=== PATIENT | female | born 1945 | race Caucasian/White ===

== ENCOUNTER 2020-10-18 09:20 | Outpatient (NON) | payer MEDICARE, SELFPAY ==
[2020-10-18 09:52] LABS: MALB Creatinine Ratio 23.5 mg/g (0-30); Microalbumin Urine Random < 13.0 mg/L
[2020-10-18 10:04] LABS: Alanine Aminotransferase 14 U/L (14-59); Alkaline Phosphatase 68 U/L (46-116); Anion Gap 9 mmol/L (8-16); Aspartate Amino Transferase 10 U/L (15-37); Bilirubin,Total 0.3 mg/dL (0.00-1.00); Blood Urea Nitrogen 10 mg/dL (7-18); Calcium 9.3 mg/dL (8.5-10.1); Carbon Dioxide 28 mmol/L (21-32); Chloride 101 mmol/L (98-108); Cholesterol 176 mg/dL (0-200); Estimated Glomerular Filt Rate > 60; Free T4 Free Thyroxine 1.59 ng/dL (0.76-1.46); Glucose 227 mg/dL (70-99); HDL Direct 74 mg/dL (40-60); LDL Cholesterol Calculated 89 mg/dL (<130); Osmolality Calculated 292 mOsm/kg (285-295); Potassium 4.8 mmol/L (3.5-5.1); Sodium 138 mmol/L (136-145); Thyroid Stimulating Hormone 0.98 uIU/mL (0.36-3.74); Total Protein 6.6 g/dL (6.4-8.2); Triglycerides 64 mg/dL (0-150)
== END 2020-10-18 09:21 ==
PROVIDERS: Visit Provider Internal Medicine Endocrinology, Diabetes & Metabolism
DX: E11.59 Type 2 diabetes mellitus with other circulatory complications (principal); I10 Essential (primary) hypertension; E11.65 Type 2 diabetes mellitus with hyperglycemia; Z79.4 Long term (current) use of insulin; E03.9 Hypothyroidism, unspecified; E78.5 Hyperlipidemia, unspecified
CPT/HCPCS: 36415; 80053; 80061; 82043; 84439; 84443

== ENCOUNTER 2020-12-22 11:05 | Outpatient (CLI) | payer MEDICARE, MEDICAID, SELFPAY ==
--- NOTE | ~2020-12-22 | XR_ITS ---
EXAMINATION: XR knee LT 3V DATE: 12/22/2020 11:30 INDICATION: Left knee pain. TECHNIQUE: 3 views of left knee were obtained. COMPARISON: Left knee radiographs 12/20/2020 FINDINGS: Bone alignment is normal. No acute fracture. There is an old fracture of patella with inter nal fixation with [id number] tension band and multiple screws. Again seen is a 1 mm step-off at the articular surface. There is mild osteoarthritis of patellofemoral compartment. No knee joint effu ryann. IMPRESSION: 1. 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 Reviewed, dictated and finalized at location B.
== END 2020-12-22 11:06 | disposition home or self-care (01) ==
PROVIDERS: PCP Family Medicine; Visit Provider Family Medicine
DX: M25.562 Pain in left knee (principal)
CPT/HCPCS: 73562

== ENCOUNTER 2021-11-08 09:21 | Outpatient (NON) | payer OTHER, SELFPAY ==
[2021-11-08 09:45] LABS: Basophils Absolute Auto 0.05 K/mm3 (0.00-0.10); Basophils Percent Auto 0.8 % (0.0-1.0); Eosinophils Percent Auto 1.5 % (1.0-6.0); Hemoglobin 14.8 g/dL (11.7-13.8); Immature Granulocyte Absolute 0.02 K/mm3 (0.00-0.00); Immature Granulocyte Percent A 0.3 % (0.0-0.0); Lymphocytes Absolute Auto 1.94 K/mm3 (1.10-4.50); Lymphocytes Percent Auto 29.3 % (18.0-42.0); Mean Corpuscular HGB Conc 32.9 g/dL (32.0-36.0); Mean Corpuscular Hemoglobin 31.1 pg (27.0-31.0); Mean Corpuscular Volume 94.5 fL (78.0-102.0); Mean Platelet Volume 10.7 fl (9.2-11.8); Monocytes Absolute Auto 0.62 K/mm3 (0.10-0.90); Monocytes Percent Auto 9.4 % (2.0-11.0); Neutrophils Absolute Auto 3.9 K/mm3 (1.7-7.2); Neutrophils Percent Auto 58.7 % (50.0-70.0); Platelet Count Result 325 K/mm3 (150-420); Red Blood Count 4.76 M/mm3 (4.20-5.40); Red Cell Distribution Width 12.4 % (11.6-14.4); White Blood Count 6.6 K/mm3 (4.8-10.8)
[2021-11-08 10:02] LABS: Hemoglobin A1C 7.4 % (<5.7)
[2021-11-08 10:19] LABS: Alanine Aminotransferase 19 U/L (14-59); Albumin Level 4.1 g/dL (3.4-5.0); Alkaline Phosphatase 77 U/L (46-116); Anion Gap 10 mmol/L (8-16); Aspartate Amino Transferase 15 U/L (15-37); Bilirubin,Total 0.3 mg/dL (0.00-1.00); Blood Urea Nitrogen 9 mg/dL (7-18); Calcium 9.7 mg/dL (8.5-10.1); Carbon Dioxide 30 mmol/L (21-32); Chloride 101 mmol/L (98-108); Cholesterol 178 mg/dL (0-200); Estimated Glomerular Filt Rate > 60; Glucose 74 mg/dL (70-99); HDL Direct 81 mg/dL (40-60); LDL Cholesterol Calculated 84 mg/dL (<130); Osmolality Calculated 289 mOsm/kg (285-295); Potassium 4.6 mmol/L (3.5-5.1); Sodium 141 mmol/L (136-145); Triglycerides 65 mg/dL (0-150)
== END 2021-11-08 09:22 | disposition home or self-care (01) ==
LOC: CHSLAB 09:28
PROVIDERS: Visit Provider Nurse Practitioner Family
DX: E78.5 Hyperlipidemia, unspecified (principal); E11.9 Type 2 diabetes mellitus without complications; I10 Essential (primary) hypertension; E03.9 Hypothyroidism, unspecified
CPT/HCPCS: 36415; 80053; 80061; 83036; 84443; 85025

== ENCOUNTER 2022-02-20 13:57 | Outpatient (RCR) | payer OTHER, SELFPAY ==
--- NOTE | 2022-02-20 15:16 | PTOPEVAL ---
Thank you for referring Pita Palmer to [facility].? The patient is scheduled to be seen for therapy? __2__x/week for 10 visits. Please review, sign, date and return this plan of care AGUILA. I agree with and certify that the following plan of care is medically necessary. Referring Physician Date Admitting Provider: Attending Provider: Ama Mendoza NP Referring Provider: *PT Outpatient Evaluation Start: 02/20/22 14:17 Freq: Status: Active Protocol: Document 02/20/22 14:39 KYLE (Rec: 02/20/22 15:01 KYLE [email or web address]) Therapy Assessment Status Assessment Status Assessment Status Evaluation Outpatient Past Medical History Neurological History Hx Neurological Disorders No Significant History Cardiovascular History Hx Hypercholesterolemia Yes Hx Hypertension Yes Respiratory History Hx Respiratory Disorders No Significant History Gastrointestinal History Hx Appendectomy Yes Hx Gastroesophageal Reflux Disease Yes Genitourinary History Hx Other Genitourinary Disorders Yes: URINARY INCONTINENCE- WEARS PAD Musculoskeletal History Hx Arthritis Yes: GENERALIZED Hx Orthopedic Surgery Yes: 2016 ORIF RT LEG,2014 LT HIP Hx Osteoporosis Yes Hx Other Musculoskeletal Disorders Yes: LT KNEE PATELLA FX Hematological History Hx Anemia Yes: TAKES PO IRON Endocrine History Hx Diabetes Yes Hx Hypothyroidism Yes HEENT History Hx Sinus Problems Yes Integumentary History Hx Skin Disorders No Significant History Psychosocial History Hx Psychiatric Disorders No Significant History Pain History Has Past Pain Affected Your Daily Life Yes: LT KNEE Anesthesia History Hx Post-Op Nausea/Vomiting Yes Evaluation Information Problem Diagnosis left knee pain Onset 02/07/22 Subjective Information Pt. reports she has had on/off Query Text:As Reported By Patient/ knee pain for several years. Family She reports that she has noticed a recent increase in pain with standing. She reports she is currently using a walker and states that she cannot stand for more than 5 minutes due to knee pain. She also describes pain in the area of the left thigh. She states that pain is most notable with standing and walking. She reports that she
== END 2022-04-04 17:06 | disposition home or self-care (01) ==
LOC: CHSPT 13:57
PROVIDERS: PCP Nurse Practitioner Family; Visit Provider Nurse Practitioner Family
DX: M25.562 Pain in left knee (principal)
CPT/HCPCS: 97014; 97110; 97161; 97530; G0283

== ENCOUNTER 2022-10-30 16:19 | Outpatient (CLI) | payer OTHER, SELFPAY ==
[2022-10-30 16:34] LABS: Hematocrit 42.4 % (35.0-42.0); Hemoglobin 13.7 g/dL (11.7-13.8); Mean Corpuscular HGB Conc 32.3 g/dL (32.0-36.0); Mean Corpuscular Hemoglobin 30.2 pg (27.0-31.0); Mean Corpuscular Volume 93.6 fL (78.0-102.0); Mean Platelet Volume 10.1 fl (9.2-11.8); Platelet Count Result 319 K/mm3 (150-420); Red Blood Count 4.53 M/mm3 (4.20-5.40); Red Cell Distribution Width 12.3 % (11.6-14.4); White Blood Count 7.4 K/mm3 (4.8-10.8)
[2022-10-30 16:50] LABS: Hemoglobin A1C 8.7 % (<5.7)
[2022-10-30 17:05] LABS: Alanine Aminotransferase 17 U/L (14-59); Alkaline Phosphatase 83 U/L (46-116); Anion Gap 4 mmol/L (8-16); Aspartate Amino Transferase 16 U/L (15-37); Bilirubin,Total 0.2 mg/dL (0.00-1.00); Blood Urea Nitrogen 12 mg/dL (7-18); Calcium 9.8 mg/dL (8.5-10.1); Carbon Dioxide 34 mmol/L (21-32); Chloride 104 mmol/L (98-108); Estimated Glomerular Filt Rate > 60; Free T4 Free Thyroxine 1.64 ng/dL (0.76-1.46); Glucose 174 mg/dL (70-99); Iron 66 ug/dL (50-170); Osmolality Calculated 297 mOsm/kg (285-295); Potassium 4.9 mmol/L (3.5-5.1); Sodium 142 mmol/L (136-145); Thyroid Stimulating Hormone 0.51 uIU/mL (0.36-3.74); Total Protein 6.9 g/dL (6.4-8.2)
== END 2022-10-30 16:20 | disposition home or self-care (01) ==
PROVIDERS: PCP Family Medicine; Visit Provider Nurse Practitioner Family
DX: E11.9 Type 2 diabetes mellitus without complications (principal); E03.9 Hypothyroidism, unspecified; D50.9 Iron deficiency anemia, unspecified; M62.838 Other muscle spasm; E87.1 Hypo-osmolality and hyponatremia; F17.200 Nicotine dependence, unspecified, uncomplicated
CPT/HCPCS: 36415; 80053; 83036; 83540; 84439; 84443; 85027

== ENCOUNTER 2023-01-14 13:06 | Outpatient (NON) | payer OTHER, SELFPAY ==
[2023-01-14 13:34] LABS: MALB Creatinine Ratio 41.4 mg/g (0-30); Microalbumin Urine Random < 13.0 mg/L
[2023-01-14 13:49] LABS: Cholesterol 158 mg/dL (0-200); Glucose 99 mg/dL (70-99); HDL Direct 72 mg/dL (40-60); LDL Cholesterol Calculated 65 mg/dL (<130); Thyroid Stimulating Hormone 0.36 uIU/mL (0.36-3.74); Triglycerides 103 mg/dL (0-150)
[2023-01-17 14:00] LABS: Glutamic acid decarboxylase AA >250 IU/mL (<5)
[2023-01-17 17:31] LABS: Vitamin D 25 Hydroxy 43 ng/mL (30-100)
[2023-01-18 04:50] LABS: Thyroid Peroxidase Antibodies <1 IU/mL (<9)
[2023-01-18 05:11] LABS: C-Peptide <0.10 ng/mL (0.80-3.85)
[2023-01-22 15:48] LABS: Zinc Transporter 8 Antibody <10 U/mL (<15)
[2023-01-23 14:44] LABS: Thyroid Stimulating Immunoglob 90 % baseline (<140)
== END 2023-01-14 13:07 | disposition home or self-care (01) ==
LOC: CHSLAB 13:09
PROVIDERS: Visit Provider Internal Medicine
DX: E78.5 Hyperlipidemia, unspecified (principal); Z71.3 Dietary counseling and surveillance; E03.9 Hypothyroidism, unspecified; M81.0 Age-related osteoporosis without current pathological fracture; I10 Essential (primary) hypertension; F17.200 Nicotine dependence, unspecified, uncomplicated; E11.9 Type 2 diabetes mellitus without complications
CPT/HCPCS: 36415; 80061; 82043; 82306; 82947; 84439; 84443; 84445; 84681; 86341; 86376

== ENCOUNTER 2023-01-18 13:02 | Outpatient (CLI) | payer OTHER, SELFPAY ==
--- NOTE | ~2023-01-18 | DEXA_ITS ---
Bone Density Report Name: JUSTUS DAVIS Age: 78 Sex: Female Ethnicity: White Date of : 1945 Indication: postmenopausal; screening for osteoporosis; height loss; prior fracture; Referring Provider: DAISY BRAGG Study: Bone densitometry was performed. Exam Date: January 18, 2023 Accession number: [id number] Bone Density: Region BMD T-score Z-score Classification AP Spine(L2, L3, L4) 1.331 2.3 4.9 Normal World Health Organization criteria for BMD impression classify patients as: Normal (T-score at or above -1.0), Osteopenia (T-score between -1.0 and -2.5), or Osteoporosis (T-score at or below -2.5). Clinical Information Provided by Patient: Have had a previous hip or vertebral fracture Has had a low trauma fracture Smokes Is being treated for osteoporosis Has used the following medications: Fosamax (i.e. alendronate), Vitamin D, Calcium Patient maximum height was 62 Menopause Age: 51 No regular weight bearing exercise Drinks caffeinated beverages Onset of menses at age 14 Number of children 0 Impression: The patient has normal bone mass. The patient has risk factors, including: smoking, previous fracture. Discussion: It is important to ask patients whether they are taking their medications and to encourage continued and appropriate compliance with their osteoporosis therapies to reduce fracture risk. It is also important to review their risk factors and encourage appropriate calcium and vitamin D intakes, exercise, fall prevention and other lifestyle measures. Follow-Up: Consider a repeat BMD and Vertebral Fracture Assessment (VFA) exam in 2 years or sooner if medically necessary, to reassess this patient's status. Reported by: Dr. Henry Jimenez on 01/18/2023 1:34:00 PM. Reviewed, dictated and finalized at location AEli DOS SANTOS
== END 2023-01-18 13:03 | disposition home or self-care (01) ==
LOC: CHSIMG 13:05
PROVIDERS: PCP Family Medicine; Visit Provider Internal Medicine
DX: M81.0 Age-related osteoporosis without current pathological fracture (principal); E11.9 Type 2 diabetes mellitus without complications; F17.200 Nicotine dependence, unspecified, uncomplicated
CPT/HCPCS: 77080

== ENCOUNTER 2023-04-18 09:18 | Outpatient (NON) | payer OTHER, SELFPAY ==
[2023-04-18 11:03] LABS: Free T4 Free Thyroxine 1.19 ng/dL (0.76-1.46); Thyroid Stimulating Hormone 14.66 uIU/mL (0.36-3.74)
== END 2023-04-18 09:19 | disposition home or self-care (01) ==
LOC: CHSLAB 09:19
PROVIDERS: Visit Provider Internal Medicine
DX: E03.9 Hypothyroidism, unspecified (principal); E10.9 Type 1 diabetes mellitus without complications
CPT/HCPCS: 84439; 84443

== ENCOUNTER 2023-09-01 23:10 | Emergency (ER) | payer OTHER, SELFPAY ==
[2023-09-01 23:10] VITALS: BP 182/65; PULSE 62; RESP 20; TEMP 37.1; O2SAT 97
[2023-09-01 23:17] LABS: Glucose Point of Care > 450 mg/dl (65-105)
--- NOTE | 2023-09-02 | ED.GENADULT ---
HPI - General Adult General Chief complaint: Recheck/Abnormal Lab/Rx Stated complaint: High BS Time Seen by Provider: 09/01/23 23:36 Source: patient and EMS Mode of arrival: ambulatory Limitations: no limitations History of Present Illness HPI narrative: 78-year-old white female diabetic insulin type 2 diabetic patient lives in the assisted living and tonight she had cake and fruit punch afterwards her sugar was 433. SUSTAINABILITY COMMUNICATOR on-call called her caregiver / power of litigation attorney told the SUSTAINABILITY COMMUNICATOR to call the ambulance to bring her to the emergency room for evaluation. Patient is completely asymptomatic she is eating drinking voiding and stooling fine no fever cough shortness of breath difficulty breathing runny nose sore throat any pain swelling lumps or bumps dizziness or lightheadedness problems voiding or stooling walking talking seeing or hearing or any other complaints. She takes 20 units of Lantus in the morning and then on a sliding scale 3 times a day with her meals. Related Data Home Medications Medication Instructions Recorded Confirmed calcium carbonate 600 mg-vitamin 1 tablet PO BID 09/05/19 09/26/23 D3 10 mcg (400 unit) tablet (Calcium 600 + D(3)) glucosamine HCl 500 mg tablet 500 mg PO DAILY 01/10/23 09/26/23 loratadine 10 mg tablet 10 mg PO DAILY 01/10/23 09/26/23 Allergies Allergy/AdvReac Type Severity Reaction Status Date / Time No Known Allergies Allergy Verified 09/25/23 07:48 Review of Systems Review of Systems: All systems reviewed & are unremarkable except as noted in HPI and below [facility] Past Medical History Medical History (Updated 09/06/23 @ 14:19 by Ji Juan DO) Arthritis DM (diabetes mellitus), type 2 Eczema Fracture of right hip requiring operative repair GERD (gastroesophageal reflux disease) GERD with esophagitis Hyperlipidemia Hypertension Hypothyroid Iron deficiency anemia Nicotine dependence Osteoporosis Type 2 diabetes mellitus with hyperglycemia Surgical History Surgical History H/O bilateral cataract extraction H/O knee surgery (09/09/19) ORIF of left patella History of hip surgery repair left hip History of surgery on lower extremity right femur repair Hx of appendectomy Hx of hysterectomy Family History Family History Brother Family history of type 2 diabetes mellitus Hypertension Mother , mother of some kind of intra-abdominal cancer Stomach cancer Father , father of lung cancer Acute myocardial infarction Family history of type 2 diabetes mellitus Hypertension Heart disease Malignant neoplasm of prostate Social History Social History Social History: The patient stated that she lives alone. She has no children. She said that her brother is her only relative. She stated that she did get fired from her job and she is retired early. She still continues to smoke a pack a cigarettes a day. No alcohol or illicit drug. Her friend is durable power litigation attorney for healthcare. She desires to be a full code Smoking packs per day: 0.75 Smoking cigarettes per day: 15.0 Years smoked: 57 Smoking pack-years: 42.75 Smoking status: Current every day smoker Tobacco type: cigarettes Second hand tobacco smoke exposure: No Additional smoking assessment comments: rolls her own cigarettes Alcohol intake: never Substance use: never Substance use type: does not use Lack of Transportation: YES Lack of Food: Never True Current Housing: I Have Housing Concerned About Future Housing: No Difficulty Paying Gas/Electric Bills: No Difficulty Paying for Meds: No Currently Unemployed: No Education: High School Diploma/GED Living arrangements: alone Occupation/Education: retired Gender identity (if verbalized by the patient): Female
[2023-09-02] MEDS: INSULIN HUMAN REGULAR (*BKC) 1,000 UNITS/10 ML VIAL 5 UNITS SUB-Q (00:05)
[2023-09-02 00:46] LABS: Glucose Point of Care 354 mg/dl (65-105)
== END 2023-09-02 01:02 | disposition home or self-care (01) ==
PROVIDERS: Emergency Provider Emergency Medicine; PCP Family Medicine
DX: E11.65 Type 2 diabetes mellitus with hyperglycemia (principal); I10 Essential (primary) hypertension; E78.5 Hyperlipidemia, unspecified; E03.9 Hypothyroidism, unspecified; Z79.899 Other long term (current) drug therapy; Z79.4 Long term (current) use of insulin
CPT/HCPCS: 82948; 99282; J1815

== ENCOUNTER 2023-09-06 14:19 | Outpatient (CLI) | payer OTHER, SELFPAY ==
[2023-09-06 15:08] LABS: Thyroid Stimulating Hormone Reflex 8.27 u/IU/mL (0.36-3.74)
[2023-09-06 15:55] LABS: Free T4 Free Thyroxine Reflex 1.26 ng/dL (0.76-1.46)
== END 2023-09-06 14:20 | disposition home or self-care (01) ==
LOC: CHSLAB 14:20
PROVIDERS: PCP Family Medicine; Visit Provider Family Medicine
DX: E11.9 Type 2 diabetes mellitus without complications (principal)
CPT/HCPCS: 36415; 84439; 84443

== ENCOUNTER 2024-11-17 11:12 | Outpatient (CLI) | payer OTHER, SELFPAY ==
[2024-11-17 11:53] LABS: Basophils Absolute Auto 0.04 K/mm3 (0.00-0.10); Basophils Percent Auto 0.5 % (0.0-1.0); Eosinophils Percent Auto 1.3 % (1.0-6.0); Hemoglobin 14.9 g/dL (11.7-13.8); Immature Granulocyte Absolute 0.04 K/mm3 (0.00-0.00); Immature Granulocyte Percent A 0.5 % (0.0-0.0); Lymphocytes Absolute Auto 2.13 K/mm3 (1.10-4.50); Lymphocytes Percent Auto 27.3 % (18.0-42.0); Mean Corpuscular HGB Conc 32.4 g/dL (32-36); Mean Corpuscular Hemoglobin 30.3 pg (27.0-31.0); Mean Corpuscular Volume 93.7 fL (78.0-102.0); Mean Platelet Volume 9.9 fl (9.2-11.8); Monocytes Percent Auto 7.7 % (2.0-11.0); Neutrophils Percent Auto 62.7 % (50.0-70.0); Platelet Count Result 309 K/mm3 (150-420); Red Blood Count 4.91 M/mm3 (4.20-5.40); Red Cell Distribution Width 12.5 % (11.6-14.4); White Blood Count 7.8 K/mm3 (4.8-10.8)
[2024-11-17 12:38] LABS: Thyroid Stimulating Hormone Reflex 0.56 u/IU/mL (0.36-3.74)
[2024-11-17 12:41] LABS: Alanine Aminotransferase 22 U/L (14-59); Albumin Level 3.9 g/dL (3.4-5.0); Alkaline Phosphatase 85 U/L (46-116); Anion Gap 7 mmol/L (4-12); Aspartate Amino Transferase 13 U/L (15-37); Bilirubin,Total 0.2 mg/dL (0.00-1.00); Blood Urea Nitrogen 17 mg/dL (7-18); Calcium 9.6 mg/dL (8.5-10.1); Carbon Dioxide 29 mmol/L (21-32); Chloride 105 mmol/L (98-108); Estimated Glomerular Filt Rate > 60; Ferritin 259 ng/mL (8-252); Glucose 91 mg/dL (70-99); Iron 75 ug/dL (50-170); Osmolality Calculated 293 mOsm/kg (285-295); Percent Iron Saturation 28 % (12-57); Potassium 4.7 mmol/L (3.5-5.1); Sodium 141 mmol/L (136-145); Total Protein 6.6 g/dL (6.4-8.2)
--- OUTSIDE RECORDS SUMMARY | 2024-11-17 12:50 | XMS_ITS | Referral Summary ---
Author Organization [facility] [address] [place] [address] [facility] Address [address] [place] [id number] Care Team Providers Care Weather Observer Name Role Phone Jey Zuñiga MD Unavailable Ji Juan DO Primary Care Provider Allergies No known active allergies Medications alendronate (FOSAMAX) 70 mg tablet take 1 tablet (70MG) by oral route every week in the morning, at least 30 min before first food, beverage, or medication of day 0 3 Active multivitamin tablet tablet take 1 tablet by oral route every day with food 0 3 Active simvastatin (ZOCOR) 40 mg tablet take 1 tablet (40MG) by oral route every day in the evening 0 3 Active lisinopril (PRINIVIL,ZESTR IL) 10 mg tablet take 1 tablet (10MG) by oral route every day 0 6 Active oxybutynin XL (DITROPAN XL) 15 mg 24 hr tablet take 1 tablet (15MG) by oral route every day 0 6 Active ferrous sulfate 325 mg (65 mg of elemental iron) tabletIndicatio ns:Iron Deficiency Anemia Take 65 mg of elemental iron by mouth 2 (two) times a day with breakfast and lunch. Active omeprazole (PriLOSEC) 40 mg capsule Take 40 mg by mouth daily. Active ibuprofen (ibuprofen) 200 mg tab/cap Take by mouth every 6 (six) hours as needed for pain. Active [id number] [id number]-bor 600 mg calcium- 800 unit-50 mg tablet Take by mouth. Activ e loratadine 10 mg capsule Take by mouth. Acti ve TRUEPLUS PEN NEEDLE 31 gauge x 3/16 needle 8 Active fluticasone (FLONASE) 50 mcg/actuation nasal spray 9 Active LINZESS 145 mcg capsule Take 1 capsule by mouth daily 9 Active insulin aspart U-100 (NovoLOG Flexpen U-100 Insulin) 100 unit/mL (3 mL) insulin penIndications: Type 2 diabetes mellitus with hyperglycemia, with long-term current use of insulin (HCC) INJECT 2-8 UNITS BEFORE MEALS ON A CORRECTIVE SCALE MAX 27 UNITS PER DAY 5 pen 6 1 Active insulin degludec (TRESIBA) 100 unit/mL (3 mL) pen for injectionIndica tions:Type 2 diabetes mellitus with hyperglycemia, with long-term current use of insulin ([facility]) Inject 0.22 mL (22 Units total) under the skin manufacture specialist before breakfast 30 mL 1 1 Active levothyroxine (SYNTHROID) 137 mcg tablet TAKE ONE TABLET BY MOUTH ONCE DAILY METAL TRIMMER BEFORE BREAKFAST 30 tablet 2 Active Januvia 100 mg tablet TAKE 1 TABLET BY MOUTH DAILY. -NOON- 30 tablet 2 Active Active Problems Problem Noted Date Diagnosed Date Acquired hypothyroidism 10/12/2020 Assessment & Plan (10/12/2020 1:14 PM GEAR MILLING MACHINE SET UP OPERATOR): Continue Levothyroxine Check TSH , free T4 Hypoglycemia 03/13/2018 Assessment & Plan (03/13/2018 11:44 AM CDT): Prevention and treatment of hypoglycemia were discussed Rx for Jag was sent. CHO intake discussed Pt saw a dietitian yesterday Hyperlipidemia associated with type 2 diabetes lorrie borrego 03/13/2018 Assessment & Plan (05/11/2021 2:25 PM CDT): Lipids at goal Continue with Simvastatin Assessment & Plan (10/12/2020 1:14 PM GEAR MILLING MACHINE SET UP OPERATOR): Goal of treatment , LDL cholesterol less than 100 ( less than 70 in patients with history of heart attacks and / or strokes ) NonHDL cholesterol ( total cholesterol minus HDL cholesterol ) goal less than 130 ( less than 100 in patients with history of heart attacks and / or strokes ) Low cholesterol, low fat diet was discussed and advised. Daily exercise On statin therapy Check lipid profile Assessment & Plan (09/27/2019 7:25 PM GEAR MILLING MACHINE SET UP OPERATOR): Check lipid panel Assessment & Plan (04/30/2019 4:48 PM CDT): Goal of treatment , LDL cholesterol less than 100 ( less than 70 in patients with history of heart attacks and / or strokes ) NonHDL cholesterol ( total cholesterol minus HDL cholesterol ) goal less than 130 ( less than 100 in patients with history of heart attacks and / or strokes ) Low cholesterol, low fat diet was discussed and advised. Daily exercise On statin therapy Assessment & Plan (12/18/2018 10:40 AM CDT): LDL at goal on current dose statin. Continue Assessment & Plan (06/24/2018 3:33 PM CDT): Continue statin therapy Assessment & Plan (03/13/2018 11:44 AM CDT): Goal of treatment , LDL cholesterol less than 100 ( less than 70 in patients with history of heart attacks and / or strokes ) NonHDL cholesterol ( total cholesterol minus HDL cholesterol ) goal less than 130 ( less than 100 in patients with history of heart attacks and / or strokes ) Low cholesterol, low fat diet was discussed and advised. Daily exercise On statin therapy Mixed hyperlipidemia 03/21/2017 Assessment & Plan (03/21/2017 10:28 AM CDT): Goal of treatment , LDL cholesterol less than 100 ( less than 70 in patients with history of heart attacks and / or strokes ) NonHDL cholesterol goal less than 130 / 100 Lipids at goal. Continue statin therapy Low cholesterol diet, exercise advised. Hypertension associated with diabetes 03/17/2013 Overview (12/06/2016): Hypertension, Unspecified Assessment & Plan (05/11/2021 2:24 PM CDT): Well controlled Continue Lisinopril Assessment & Plan (10/12/2020 1:13 PM GEAR MILLING MACHINE SET UP OPERATOR): Goal blood pressure is less than 140/85 Low salt diet was discussed andd recommended The importance of daily aerobic exercise was also emphasized. Continue current meds, including MAGDA-I or ARB, e.g. Check microalbumin Assessment & Plan (09/27/2019 7:25 PM GEAR MILLING MACHINE SET UP OPERATOR): Controlled on current medications. Continue plan. Assessment & Plan (04/30/2019 4:47 PM CDT): Goal blood pressure is less than 140/85 Low salt diet recommended Daily aerobic exercise Continue current meds, including MAGDA-I or ARB with lisinopril Assessment & Plan (12/18/2018 10:40 AM CDT): Controlled on current medications. Assessment & Plan (10/16/2018 10:27 AM GEAR MILLING MACHINE SET UP OPERATOR): Goal blood pressure is less than 140/85 Low salt diet recommended Daily aerobic exercise Continue current meds, including MAGDA-I or ARB Assessment & Plan (06/24/2018 3:33 PM CDT): Controlled on current medications. Assessment & Plan (03/13/2018 11:45 AM CDT): Goal blood pressure is less than 140/85 Low salt diet recommended Daily aerobic exercise Continue current meds, including MAGDA-I or ARB Assessment & Plan (12/08/2017 3:35 PM CDT): Controlled on current medications. Assessment & Plan (09/19/2017 11:10 AM GEAR MILLING MACHINE SET UP OPERATOR): Controlled on current medications. Assessment & Plan (06/14/2017 8:22 AM CDT): Controlled on current medications. Assessment & Plan (03/21/2017 10:27 AM CDT): Goal blood pressure is less than 140/85 Low salt diet recommended Daily aerobic exercise Continue current meds, including MAGDA-I or ARB Hyperlipidemia 03/17/2013 Overview (12/07/2016): HYPERLIPIDEMIA NEC/NOS Assessment & Plan (12/08/2017 3:34 PM CDT): At goal on current medications. Assessment & Plan (09/19/2017 11:09 AM GEAR MILLING MACHINE SET UP OPERATOR): Check PCP labs. Will order lipid panel next OV if needed. Continue statin. Assessment & Plan (06/14/2017 8:22 AM CDT): At goal on current medications.. Type 2 diabetes mellitus 10/06/2012 Overview (12/07/2016): DMII WO CMP UNCNTRLD Assessment & Plan (05/11/2021 2:24 PM CDT): Hba1c was Lab Results Component Value Date HGBA1C 7.4 (A) 05/11/2021 today, indicating suboptimal DM control Goal blood sugars in the 120-150 range , with Hb1c under 7.0 % was explained 1800 calorie, consistent carb diet recommended. No more than 30-45 grams of carbs per meal recommended, as well as avoiding high concentrated sweet drinks . 25-45 min daily exercise, combining both aerobic and resistance exercise recommended. The need to monitor blood glucose before meals and bedtime was discussed. Prevention and treatment of hyypoglcyemia discussed. Continue current regimen with Tresiba, Humalog and Januvia Assessment & Plan (10/12/2020 1:13 PM GEAR MILLING MACHINE SET UP OPERATOR): Lower Tresiba to 20 units in the morning Humalog, before meals : For sugars under 100, none 101-150 2 units 151-200 4 units 201-250 6 units Over 251 8 units Continue Januvia 101-150, and Humalog, no more than 8 units Will request hba1c Assessment & Plan (09/27/2019 7:15 PM GEAR MILLING MACHINE SET UP OPERATOR): A1c improved to 7.3. Decrease Tresiba to 18 units. Continue the same Novolog and Januvia. Continue to focus on eating a consistent amount of carbs at each meal or snack to prevent spikes in your blood sugars. Assessment & Plan (04/30/2019 4:46 PM CDT): Your Hba1c today was: Lab Results Component Value Date HGBA1C 8.2 % 04/30/2019 meaning a 3 month average sugar of : 187 Your goal hba1c is under 7.0 to prevent salvage determiner diabetes complications ( eye , kidney and nerve damage ) . Your goal sugars are in the 90-130 range Exercise recommendations: It is recommended that you do daily aerobic ( walking, riding a bike, swimming ) and resistance exercises ( light weight lifting, resistance band stretching ) for at least 30 minutes , most days of the week. If you can not walk, chair exercises for 10-15 min a day would help tremendously. As little as 15-20 minutes exercise , in one or two sessions a day, is still very helpful to improve your diabetes control . Diet recommendations: Eat small portion meals, trying not to consume more than 1800 calories a day . Try to eat not more than than 2 servings of carbs ( starches ) wiith your meals. Avoid soft drinks, including regular sodas , fruit juices and sweetened tea. Drink water instead. Eat plenty of green and leafy vegetables, including salads. Medications: Take your medications regularly. Setting phone alarms can help . Keep your medication on the kitchen dinner table, by the bedside table or by the sink where they are visible to you. If you are taking insulin : the insulin that you are currently using does not need to be refrigerated. Keep it where you can see it . Monitor your sugar levels with Sonalight glucose monitor Bring your sugar meter and /or a log book or log sheet to every office visit. Take Tresiba, 18 units once a day ( either every night or every morning ) Take Novolog, before meals as follows: For sugars under 100, none 100-150, 4 units 151-200 6 units 201-250 8 units Over 251 10 units Januvia, 100 mg daily Assessment & Plan (12/18/2018 10:42 AM CDT): No change to insulin plan. Variability from day to day continues to be related to foods available to pt. She needs to have reader with her at all times. Note sent with pt to facility re: this issue. BG goals reviewed. Assessment & Plan (10/16/2018 10:25 AM GEAR MILLING MACHINE SET UP OPERATOR): Hba1c was Lab Results Component Value Date HGBA1C 8.7 10/16/2018 today, indicating poor DM control 1800 calorie, consistent carb diet recommended 25-45 min daily exercise, combining both aerobic and resistance exercise recommended. The need to monitor blood glucose before meals and bedtime was discussed. Dose of basal and prandial insulin adjusted as follows: Hold Basaglar Start Tresiba, 20 units at bedtime Continue Novolog same schedule. Prevention and treatment of hyypoglcyemia discussed. Assessment & Plan (06/24/2018 3:32 PM CDT): A1c is 8.8. Not enough improvement. Increase Basaglar to 16 units. Adjust Humalog as follows 80-120 take 4 units 120-160 take 6 units 161-200 take 8 units 201--250 take 12 units 251-300 take 15 units Above 300 take 18 units Advised that she needs carb intake at each meal. Provided order in writing for facility to not give Humalog more than 10 minutes ac. Undoubtedly this is contributing to fluctuations in BG. Assessment & Plan (03/13/2018 11:42 AM CDT): Your Hba1c today was: Lab Results Component Value Date HGBA1C 9.3 03/13/2018 meaning a 3 month average sugar of : 224 Your goal hba1c is under 8.0 to prevent salvage determiner diabetes complications ( eye , kidney and nerve damage ) . Your goal sugars are in the 120-130 range Daily aerobic ( walking, riding a bike, swimming ) and resistance exercises ( light weight lifting, resistance band stretching ) for at least 30 minutes is recommended If you can not walk, chair exercises is very acceptable. As little as 15-20 minutes exercise , in one or two sessions a day, is still very helpful and will help to improve your diabetes control . Eat small portion meals, no more than 1800 calories Diet Try to eat not more than than 2-3 servings of carbs ( starches ) wiith your meals. Avoid soft drinks, including regular sodas , fruit juices and sweetened tea. Drink water instead. Eat plenty of green and leafy vegetables, including salads. Take your medications regularly,including your insulin injections. Monitor your sugar levels with finger sticks regularly and keep a log sheet or book. Bring your sugar meter and /or a log book or log sheet to every office visit. Assessment & Plan (12/08/2017 3:37 PM CDT): A1c worsening 9.8. Mostly continues to be d/t food choices however FBG are elevated most of the time. Increase Lantus to 13 units at bedtime. Novolog scale before meals 80-120 2 units, 121-160 = 3, 161-200 = 4 200-250 = 6 units 250-300 = 7 Above 300 = 8 units If your morning sugars are still over 200 after one week, then increase Lantus to 14. Diet needs to be less starchy carbs since this is what is impacting the high sugars. Continue with your walking daily. Assessment & Plan (09/19/2017 11:12 AM GEAR MILLING MACHINE SET UP OPERATOR): A1c 8.8. Wide variability in BG appears to be in part d/t heavy carb food options provided by facility combined with inconsistent dosing of insulin by staff. Will rewrite instructions on how and when to appropriately give Novolog insulin. Pt actually has very good understanding of this issue and tries to manage as best as can. Assessment & Plan (06/13/2017 11:57 AM CDT): A1c 9.3. Will adjust Novolog scale as follows. 80-120 take 2 units 121-160 take 3 units 161-200 take 5 units 201-250 take 7 units 251-300 take 8 units Above 300 take 9 units Additionally needs to focus on smaller starch servings at meals. Assessment & Plan (03/21/2017 10:27 AM CDT): Hba1c was 8.6 today, indicating adequate DM control 1800 calorie, consistent carb diet recommended 30 min daily aerobic and resistance exercise recommended Foot care discused. Prevention and treatment of hyypoglcyemia discussed. Social History Tobacco Use Types Packs/Day Years Used Date Smoking Tobacco: Heavy Smoker Smokeless Tobacco: Never Comments:Smoking History Pac ks/day: 1 Packs Alcohol Use Standard Drinks/Week Comments No 0 (1 standard drink = 0.6 oz pur e alcohol) PHQ-2 Answer Date Recorded PHQ-2 Total Score (If total score is 3 or more points, staff should administer the PHQ-9) 0 10/12/2020 Comments Unknown Sex and Gender Information Value Date Recorded Sex Assigned at Not on file Legal Sex Female 11:14 AM GEAR MILLING MACHINE SET UP OPERATOR Gender Identity Not on file Sexual Orientation Not on file Last Filed Vital Signs Vital Sign Reading Time Taken Comments Blood Pressure 108/56 05/11/2021 2:07 PM CDT Pulse 90 05/11/2021 2:07 PM CDT Temperature - - Respiratory Rate 16 05/11/2021 2:07 PM CDT Oxygen Saturation - - Inhaled Oxygen Concentration - - Weight 49 kg (108 lb) 05/11/2021 2:07 PM CDT Height 152.4 cm (5') 05/11/2021 2:07 PM CDT Body Mass Index 21.09 05/11/2021 2:07 PM CDT Plan of Treatment Not on file Insurance MEDICARE [facility] IDPA Care Teams Weather Observer Relationship Specialty Start Date End Date Ji Juan DO [address] [place] [address] PCP - General Family Medicine 11/16/21 Jey Zuñ[place] [id number] [address] [facility] [address] [place] [address] Consulting Physician Endocrinology Diabetes & Metabolism 04/29/19
--- OUTSIDE RECORDS SUMMARY | 2024-11-17 12:50 | XMS_ITS | Clinical Summary ---
Author Organization [facility] [address] [place] [address] Professional [facility] [place] Address [address] [place] [phone] Care Team Providers Care Production Cook Name Role Phone Jey Zuñiga MD Unavailable [...] (six) hours as needed for pain. Active [id number] ou-xfn-[id number]-bor 600 mg calcium- 800 unit-50 mg tablet [...] hyperglycemia, with long-term current use of insulin ([facility]) Inject 0.22 mL (22 Units total) under the skin early childhood assistant before breakfast 30 mL 1 1 Active levothyroxine (SYNTHROID) 137 mcg tablet TAKE ONE TABLET BY MOUTH ONCE DAILY FICTION AND NONFICTION PROSE WRITER BEFORE BREAKFAST 30 tablet 2 Active Januvia 100 mg tablet TAKE 1 TABLET BY MOUTH DAILY. -NOON- 30 tablet 2 Active Active Problems Problem Noted Date Diagnosed Date Acquired hypothyroidism 10/12/2020 Assessment & Plan (10/12/2020 1:14 PM BOAT RIDE OPERATOR): Continue Levothyroxine Check TSH , free [...] Simvastatin Assessment & Plan (10/12/2020 1:14 PM BOAT RIDE OPERATOR): Goal of treatment , LDL cholesterol [...] profile Assessment & Plan (09/27/2019 7:25 PM BOAT RIDE OPERATOR): Check lipid panel Assessment & Plan [...] Lisinopril Assessment & Plan (10/12/2020 1:13 PM BOAT RIDE OPERATOR): Goal blood pressure is less than 140/85 Low salt diet was discussed andd recommended The importance of daily aerobic exercise was also emphasized. Continue current meds, including MAGDA-I or ARB, e.g. Check microalbumin Assessment & Plan (09/27/2019 7:25 PM BOAT RIDE OPERATOR): Controlled on current medications. Continue plan. Assessment & Plan (04/30/2019 4:47 PM CDT): Goal blood pressure is less than 140/85 Low salt diet recommended Daily aerobic exercise Continue current meds, including MAGDA-I or ARB with lisinopril Assessment & Plan (12/18/2018 10:40 AM CDT): Controlled on current medications. Assessment & Plan (10/16/2018 10:27 AM BOAT RIDE OPERATOR): Goal blood pressure is less than [...] medications. Assessment & Plan (09/19/2017 11:10 AM BOAT RIDE OPERATOR): Controlled on current medications. Assessment & [...] medications. Assessment & Plan (09/19/2017 11:09 AM BOAT RIDE OPERATOR): Check PCP labs. Will order lipid [...] Januvia Assessment & Plan (10/12/2020 1:13 PM BOAT RIDE OPERATOR): Lower Tresiba to 20 units in the morning Humalog, before meals : For sugars under 100, none 101-150 2 units 151-200 4 units 201-250 6 units Over 251 8 units Continue Januvia 101-150, and Humalog, no more than 8 units Will request hba1c Assessment & Plan (09/27/2019 7:15 PM BOAT RIDE OPERATOR): A1c improved to 7.3. Decrease Tresiba [...] goal hba1c is under 7.0 to prevent long term care administrator diabetes complications ( eye , kidney and [...] it . Monitor your sugar levels with [employer] glucose monitor Bring your sugar meter and [...] reviewed. Assessment & Plan (10/16/2018 10:25 AM BOAT RIDE OPERATOR): Hba1c was Lab Results Component Value [...] goal hba1c is under 8.0 to prevent long term care administrator diabetes complications ( eye , kidney and [...] daily. Assessment & Plan (09/19/2017 11:12 AM BOAT RIDE OPERATOR): A1c 8.8. Wide variability in BG [...] discused. Prevention and treatment of hyypoglcyemia discussed. Surgical History Surgery Date Site/Laterality Comments HYSTERECTOMY 1991 Hysterectomy Medical History Medical History Date Comments Diabetes mellitus (HCC) Diabetes Osteoporosis Osteoporosis Disorder of thyroid Thyroid dise ase Hyperlipidemia Hyperlipidemia Hypertension Hypertension Hx Other Medical Stress incontin ence Hx Other Medical hip surgery; Co mments: [facility] 04/26/2016 - Family History Medical History Relation Name Comments Diabetes Brother 1 Diabetes mellit us; Hypertension Brother 2 Hypertension; Diabetes Father Diabetes mellit us; Hypertension Father Hypertension; Lung cancer Father Cancer, lung; C ause of : Cancer, lung Other Mother stomach; Cause of : stomach Other Other 1 Family history of Cancer - stomach; Diabetes Other 2 Family history of Diabetes mellitus; Lung cancer Other 3 Family history of Cancer, lung; Relation Name Status Comments Brother 1 Brother 2 Father Mother Other 1 Other 2 Other 3 Social History Tobacco Use Types Packs/Day Years [...] on file Legal Sex Female 11:14 AM BOAT RIDE OPERATOR Gender Identity Not on file Sexual Orientation Not on file Obstetrics History Last Filed Vital Signs Vital Sign Reading [...] of Treatment Not on file Insurance MEDICARE [facility] Care Teams Production Cook Relationship Specialty Start Date End Date Ji Juan DO [address], [place] [id number] PCP - General Family Medicine 11/16/21 Jey Zuñiga [place] [id number] [place] [address] Consulting Physician Endocrinology Diabetes & Metabolism 04/29/19
--- OUTSIDE RECORDS SUMMARY | 2024-11-17 12:50 | XMS_ITS | Clinical Summary ---
Author Organization [facility] Address [address] [place] [id number] Care Team Providers Care Physical Therapy Coordinator Name Role Phone Unavailable Primary Care Provider Unavailabl e Social History Tobacco Use Types Packs/Day Years Used Date Smoking Tobacco: Never Assessed Comments Unknown Sex and Gender Information Value Date Recorded Sex Assigned at Not on file Legal Sex Female 11:03 PM MECHANICAL DESIGN ENGINEER FACILITIES Gender Identity Not on file Sexual Orientation Not on file Plan of Treatment Health Maintenance Due Date Last Done Comments Hepatitis C 01/16/1963 DTaP, Tdap and Td Vaccines ( 1 - Tdap) 1965 Zoster Vaccines (1 of 2) 01/16/1996 Dexa Scan (General) 2011 Pneumococcal Vaccine: 65+ Ye ars (1 of 1 - PCV) 2011 RSV Immunization or 60+ Years (1 - 1-dose 75+ series) 2021 COVID-19 Vaccine ( - 2023-2 5 season) 2024 Influenza Adult (#1) 2024 Meningococcal B Vaccine Aged Out No l onger eligible based on patient's age to complete this topic Meningococcal Vaccine Aged Out No eric shmuel eligible based on patient's age to complete this topic RSV Immunizations Under 20 Months Aged Out No longer eligible based on patient's age to complete this topic
== END 2024-11-17 11:13 | disposition home or self-care (01) ==
LOC: CHSLAB 11:13
PROVIDERS: PCP Family Medicine; Visit Provider Family Medicine
DX: E03.9 Hypothyroidism, unspecified (principal); D64.9 Anemia, unspecified; D50.9 Iron deficiency anemia, unspecified
CPT/HCPCS: 36415; 80053; 82728; 83540; 83550; 84443; 85025

== ENCOUNTER 2025-01-19 08:41 | Outpatient (CLI) | payer OTHER, SELFPAY ==
--- NOTE | ~2025-01-19 | DEXA_ITS ---
Bone Density Report Name: JUSTUS DAVIS Age: 80 Sex: Female Ethnicity: White Date of : 1945 Indication: monitoring treatment; height loss; prior fracture; hysterectomy; Referring Provider: Ji Juan Study: Bone densitometry was performed. Exam Date: January 19, 2025 Accession number: [id number] Bone Density: Region BMD T-score Z-score Classification AP Spine(L2, L3, L4) 1.352 2.5 5.2 Normal World Health Organization criteria for BMD impression classify patients as: Normal (T-score at or above -1.0), Osteopenia (T-score between -1.0 and -2.5), or Osteoporosis (T-score at or below -2.5). Previous Exams: Region Exam Age BMD T-score BMD Change BMD Change Date g/cm2 vs Baseline vs Previous AP Spine (L2-L4) 01/19/2025 80 1.352 2.5 0.021 (1.6%) 0.021 (1.6%) 01/18/2023 78 1.331 2.3 *Denotes significance at 95% confidence level, LSC for AP Spine = 0.022 g/cm2 Clinical Information Provided by Patient: Have had a previous hip or vertebral fracture Has had a low trauma fracture Smokes Is being treated for osteoporosis Has used the following medications: Vitamin D, Calcium Has the following medical conditions: Hysterectomy, Hypothyroidism Patient maximum height was 62 Menopause Age: 46 No regular weight bearing exercise Drinks caffeinated beverages Onset of menses at age 14 Number of children 0 Impression: The patient has normal bone mass. The patient has risk factors, including: smoking, previous fracture. No significant bone loss was observed. Discussion: PATIENT UNDER TREATMENT WITH NO SIGNIFICANT BMD LOSS SINCE LAST EXAM. In an untreated patient, BMD typically declines with age. A lack of decline or gain is usually a sign that treatment is efficacious and fracture risk is reduced. It is important to ask patients whether they are taking their medications and to encourage continued and appropriate compliance with their osteoporosis therapies to reduce fracture risk. It is also important to review their risk factors and encourage appropriate calcium and vitamin D intakes, exercise, fall prevention and other lifestyle measures. Follow-Up: Consider a repeat BMD and Vertebral Fracture Assessment (VFA) exam in 2 years or sooner if medically necessary, to reassess this patient's status. Reported by: ARISTIDES on 01/19/2025 9:18:00 AM. Reviewed, dictated and finalized at location A.
--- OUTSIDE RECORDS SUMMARY | 2025-01-19 08:51 | XMS_ITS | Referral Summary ---
Author Organization [facility] [address] [place] [address] Professional [facility] Address [address] [place] [phone] Care Team Providers Care Financial Aid Administrator Name Role Phone Jey Zuñiga MD Unavailable [...] (six) hours as needed for pain. Active [id number] an-fii-zrtf-bor 600 mg calcium- 800 unit-50 mg tablet [...] with long-term current use of insulin (HCC) Inject 0.22 mL (22 Units total) under the skin assembler dielectric heater before breakfast 30 mL 1 1 Active levothyroxine (SYNTHROID) 137 mcg tablet TAKE ONE TABLET BY MOUTH ONCE DAILY BUSINESS SERVICES ASSISTANT BEFORE BREAKFAST 30 tablet 2 Active Januvia 100 mg tablet TAKE 1 TABLET BY MOUTH DAILY. -NOON- 30 tablet 2 Active Active Problems Problem Noted Date Diagnosed Date Acquired hypothyroidism 10/12/2020 Assessment & Plan (10/12/2020 1:14 PM QUENCHING MACHINE OPERATOR): Continue Levothyroxine Check TSH , free [...] Simvastatin Assessment & Plan (10/12/2020 1:14 PM QUENCHING MACHINE OPERATOR): Goal of treatment , LDL cholesterol [...] profile Assessment & Plan (09/27/2019 7:25 PM QUENCHING MACHINE OPERATOR): Check lipid panel Assessment & Plan [...] Lisinopril Assessment & Plan (10/12/2020 1:13 PM QUENCHING MACHINE OPERATOR): Goal blood pressure is less than 140/85 Low salt diet was discussed andd recommended The importance of daily aerobic exercise was also emphasized. Continue current meds, including MAGDA-I or ARB, e.g. Check microalbumin Assessment & Plan (09/27/2019 7:25 PM QUENCHING MACHINE OPERATOR): Controlled on current medications. Continue plan. Assessment & Plan (04/30/2019 4:47 PM CDT): Goal blood pressure is less than 140/85 Low salt diet recommended Daily aerobic exercise Continue current meds, including MAGDA-I or ARB with lisinopril Assessment & Plan (12/18/2018 10:40 AM CDT): Controlled on current medications. Assessment & Plan (10/16/2018 10:27 AM QUENCHING MACHINE OPERATOR): Goal blood pressure is less than [...] medications. Assessment & Plan (09/19/2017 11:10 AM QUENCHING MACHINE OPERATOR): Controlled on current medications. Assessment & [...] medications. Assessment & Plan (09/19/2017 11:09 AM QUENCHING MACHINE OPERATOR): Check PCP labs. Will order lipid [...] Januvia Assessment & Plan (10/12/2020 1:13 PM QUENCHING MACHINE OPERATOR): Lower Tresiba to 20 units in the morning Humalog, before meals : For sugars under 100, none 101-150 2 units 151-200 4 units 201-250 6 units Over 251 8 units Continue Januvia 101-150, and Humalog, no more than 8 units Will request hba1c Assessment & Plan (09/27/2019 7:15 PM QUENCHING MACHINE OPERATOR): A1c improved to 7.3. Decrease Tresiba [...] goal hba1c is under 7.0 to prevent halfway diabetes complications ( eye , kidney and [...] it . Monitor your sugar levels with [employer] glucose monitor Bring your sugar meter and [...] reviewed. Assessment & Plan (10/16/2018 10:25 AM QUENCHING MACHINE OPERATOR): Hba1c was Lab Results Component Value [...] goal hba1c is under 8.0 to prevent halfway diabetes complications ( eye , kidney and [...] daily. Assessment & Plan (09/19/2017 11:12 AM QUENCHING MACHINE OPERATOR): A1c 8.8. Wide variability in BG [...] on file Legal Sex Female 11:14 AM QUENCHING MACHINE OPERATOR Gender Identity Not on file Sexual [...] of Treatment Not on file Insurance MEDICARE [facility] ID[employer] Care Teams Financial Aid Administrator Relationship Specialty Start Date End Date Ji Juan DO [address] [place] [address] PCP - General Family Medicine 11/16/21 Jey Zuñiga [place] [id number] [place] [address] Consulting Physician Endocrinology Diabetes & Metabolism 04/29/19
--- OUTSIDE RECORDS SUMMARY | 2025-01-19 08:51 | XMS_ITS | Clinical Summary ---
Author Organization [facility] [address] [place] [address] Professional [place] Address [address] [place] [phone] Care Team Providers Care Groundman Name Role Phone Jey Zuñiga MD Unavailable [...] (six) hours as needed for pain. Active [id number]-zi yk-cys-sjtg-bor 600 mg calcium- 800 unit-50 mg tablet [...] mL (22 Units total) under the skin ferry pilot before breakfast 30 mL 1 1 Active levothyroxine (SYNTHROID) 137 mcg tablet TAKE ONE TABLET BY MOUTH ONCE DAILY SYSTEM ARCHITECT BEFORE BREAKFAST 30 tablet 2 Active Januvia 100 mg tablet TAKE 1 TABLET BY MOUTH DAILY. -NOON- 30 tablet 2 Active Active Problems Problem Noted Date Diagnosed Date Acquired hypothyroidism 10/12/2020 Assessment & Plan (10/12/2020 1:14 PM AUTOMOTIVE MANAGER): Continue Levothyroxine Check TSH , free T4 [...] Simvastatin Assessment & Plan (10/12/2020 1:14 PM AUTOMOTIVE MANAGER): Goal of treatment , LDL cholesterol less [...] profile Assessment & Plan (09/27/2019 7:25 PM AUTOMOTIVE MANAGER): Check lipid panel Assessment & Plan (04/30/2019 [...] Lisinopril Assessment & Plan (10/12/2020 1:13 PM AUTOMOTIVE MANAGER): Goal blood pressure is less than 140/85 Low salt diet was discussed andd recommended The importance of daily aerobic exercise was also emphasized. Continue current meds, including MAGDA-I or ARB, e.g. Check microalbumin Assessment & Plan (09/27/2019 7:25 PM AUTOMOTIVE MANAGER): Controlled on current medications. Continue plan. Assessment & Plan (04/30/2019 4:47 PM CDT): Goal blood pressure is less than 140/85 Low salt diet recommended Daily aerobic exercise Continue current meds, including MAGDA-I or ARB with lisinopril Assessment & Plan (12/18/2018 10:40 AM CDT): Controlled on current medications. Assessment & Plan (10/16/2018 10:27 AM AUTOMOTIVE MANAGER): Goal blood pressure is less than 140/85 [...] medications. Assessment & Plan (09/19/2017 11:10 AM AUTOMOTIVE MANAGER): Controlled on current medications. Assessment & Plan [...] medications. Assessment & Plan (09/19/2017 11:09 AM AUTOMOTIVE MANAGER): Check PCP labs. Will order lipid panel [...] Januvia Assessment & Plan (10/12/2020 1:13 PM AUTOMOTIVE MANAGER): Lower Tresiba to 20 units in the morning Humalog, before meals : For sugars under 100, none 101-150 2 units 151-200 4 units 201-250 6 units Over 251 8 units Continue Januvia 101-150, and Humalog, no more than 8 units Will request hba1c Assessment & Plan (09/27/2019 7:15 PM AUTOMOTIVE MANAGER): A1c improved to 7.3. Decrease Tresiba to [...] goal hba1c is under 7.0 to prevent care home diabetes complications ( eye , kidney and [...] it . Monitor your sugar levels with [employer] glucose monitor Bring your sugar meter and [...] reviewed. Assessment & Plan (10/16/2018 10:25 AM AUTOMOTIVE MANAGER): Hba1c was Lab Results Component Value Date [...] goal hba1c is under 8.0 to prevent care home diabetes complications ( eye , kidney and [...] daily. Assessment & Plan (09/19/2017 11:12 AM AUTOMOTIVE MANAGER): A1c 8.8. Wide variability in BG appears [...] Surgical History Surgery Date Site/Laterality Comments HYSTERECTOMY 1992 Hysterectomy Medical History Medical History Date Comments Diabetes mellitus (HCC) Diabetes Osteoporosis Osteoporosis Disorder of thyroid Thyroid dise ase Hyperlipidemia Hyperlipidemia Hypertension Hypertension Hx Other Medical Stress incontin ence Hx Other Medical hip surgery; Co mments: [facility] 04/26/2016 - Family History Medical History Relation [...] on file Legal Sex Female 11:14 AM AUTOMOTIVE MANAGER Gender Identity Not on file Sexual Orientation [...] of Treatment Not on file Insurance MEDICARE [employer] IDPA Care Teams Groundman Relationship Specialty Start Date End Date Ji Juan DO [address] [place] [address] PCP - General Family Medicine 11/16/21 Jey Zuñiga [place] [id number] [facility] [address] [place] [address] Consulting Physician Endocrinology Diabetes & Metabolism 04/29/19
--- OUTSIDE RECORDS SUMMARY | 2025-01-19 08:51 | XMS_ITS | Clinical Summary ---
Author Organization [facility] Address [address] [place] [address] Care Team Providers Care Nutritional Services Cook Name Role Phone Unavailable Primary Care Provider Unavailabl e Social History Tobacco Use Types Packs/Day Years Used Date Smoking Tobacco: Never Assessed Comments Unknown Sex and Gender Information Value Date Recorded Sex Assigned at Not on file Legal Sex Female 11:03 PM COTTON BALER Gender Identity Not on file Sexual Orientation Not on file Plan of Treatment Health Maintenance Due Date Last Done Comments Hepatitis C 01/16/1963 DTaP, Tdap and Td Vaccines ( 1 - Tdap) 1965 Pneumococcal Vaccine: 50+ Ye ars (1 of 1 - PCV) 01/16/1996 Zoster Vaccines (1 of 2) 01/16/1996 Dexa Scan (General) 2011 RSV Immunization or 60+ Years (1 - 1-dose 75+ series) 2021 COVID-19 Vaccine ( - 2023-2 5 season) 2024 Meningococcal B Vaccine Aged Out No l onger eligible based on patient's age to complete this topic Meningococcal Vaccine Aged Out No eric shmuel eligible based on patient's age to complete this topic RSV Immunizations Under 20 Months Aged Out No longer eligible based on patient's age to complete this topic
== END 2025-01-19 08:42 | disposition home or self-care (01) ==
PROVIDERS: PCP Family Medicine; Visit Provider Family Medicine
DX: Z78.0 Asymptomatic menopausal state (principal)
CPT/HCPCS: 77080

== ENCOUNTER 2025-05-24 04:43 | Inpatient (IN) | payer OTHER, SELFPAY ==
[2025-05-24] VITALS (12 sets, daily range): BP systolic 103–151; BP diastolic 48–102; PULSE 75–123; RESP 15–21; TEMP 36.5–36.9; O2SAT 94–100
--- NOTE | ~2025-05-24 | XR_ITS ---
MODIFIED ESOPHAGRAM HISTORY: Coughing with meals TECHNIQUE: Modified barium esophagram was performed on 05/27/2025. I administered fluoroscopy and performed the exam with speech pathologist. Patient was seated for lateral fluoroscopic imaging for ingestion of thin liquids, pudding, solids and quantified amounts, followed by thin liquids in uncontrolled amounts. This was recorded on tape. A single fluoroscopic spot image was also recorded. The DAP for this procedure was 1.67 Gycm2. The amount of fluoroscopy time used during this procedure was 3.5 minutes. FINDINGS: Oral stage: Reduced lingual movement. Pharyngeal stage: Reduced laryngeal elevation and adduction. Reduced tongue base retraction and reduced pharyngeal squeeze. There is vallecular and piriform sinus residue. There was laryngeal penetration and aspiration. Cervical/esophageal stage: Adequate function. IMPRESSION: Oropharyngeal dysphagia with laryngeal penetration and aspiration. Please correlate with speech pathologist findings and specific feeding recommendations. Reviewed, dictated and finalized at location A. IMPRESSION: Oropharyngeal dysphagia with laryngeal penetration and aspiration. Please correlate with speech pathologist findings and specific feeding recomme ndations.
--- NOTE | ~2025-05-24 | XR_ITS ---
Examination: XR chest 1V portable Clinical History: ?DKA?, AMS Comparison: 09/20/2019 Technique: Portable AP Findings: Heart size normal. Mild bibasilar atelectasis and/or scarring. Mild hyperinflation. No acute bony abnormality. IMPRESSION: 1. No acute cardiopulmonary findings given portable technique. Reviewed, dictated and finalized at location R.
--- NOTE | 2025-05-24 04:49 | ED_ITS ---
HPI - General Adult General Chief complaint: Unspecified Stated complaint: high blood sugar Time Seen by Provider: 05/24/25 04:49 History of Present Illness HPI narrative: Patient has history of diabetes, reportedly had changes to her insulin regimen recently, her retirement noticed that she seemed confused, checked a blood sugar in it was over 600 so sent her to the ER. Patient is denying any complaints, no chest pain, shortness of breath, or pain with urination. She does have some nausea and she feels extremely thirsty. Related Data Allergies Allergy/AdvReac Type Severity Reaction Status Date / Time No Known Allergies Allergy Verified 02/18/25 11:24 Review of Systems 2 Review of Systems: All systems reviewed & are unremarkable except as noted in HPI and below PMFSH Past Medical History Medical History Type 2 diabetes mellitus with hyperglycemia Eczema Nicotine dependence Fracture of right hip requiring operative repair Iron deficiency anemia GERD with esophagitis Osteoporosis Hypothyroid Arthritis GERD (gastroesophageal reflux disease) Hypertension Hyperlipidemia DM (diabetes mellitus), type 2 Surgical History Surgical History History of surgery on lower extremity right femur repair History of hip surgery repair left hip H/O bilateral cataract extraction H/O knee surgery (09/09/19) ORIF of left patella Hx of appendectomy Hx of hysterectomy Family History Family History Brother Family history of type 2 diabetes mellitus Hypertension Mother , mother of some kind of intra-abdominal cancer Stomach cancer Father , father of lung cancer Acute myocardial infarction Family history of type 2 diabetes mellitus Hypertension Heart disease Malignant neoplasm of prostate Social History Social History Social History: The patient stated that she lives alone. She has no children. She said that her brother is her only relative. She stated that she did get fired from her job and she is retired early. She still continues to smoke a pack a cigarettes a day. No alcohol or illicit drug. Her friend is durable power defense attorney for healthcare. She desires to be a full code Smoking packs per day: 0.75 Smoking cigarettes per day: 15.0 Years smoked: 57 Smoking pack-years: 42.75 Smoking status: Current every day smoker Tobacco type: cigarettes Second hand tobacco smoke exposure: No Additional smoking assessment comments: rolls her own cigarettes Alcohol intake: never Substance use: never Substance use type: does not use Lack of Transportation: YES Lack of Food: Never True Current Housing: I Have Housing Concerned About Future Housing: No Difficulty Paying Gas/Electric Bills: No Difficulty Paying for Meds: No Currently Unemployed: No Education: High School Diploma/GED Living arrangements: alone Occupation/Education: retired Gender identity (if verbalized by the patient): Female Spiritual care concerns: No Agree to blood products: Yes Exam 2 Narrative: EXAMINATION OF ORGAN SYSTEMS/BODY AREAS: Constitutional: Vital signs per nursing GENERAL:[No acute distress, non-toxic appearing.] HEAD: Normal with no signs of head trauma. EYES: EOMI, conjunctiva normal ENT: Dry mucous membranes LUNGS: Nonlabored breathing. HEART: Slightly tachycardic ABD: [Soft], [nontender to palpation] EXT: Normal range of motion SKIN: [No rashes or lesions.] NEURO: [Alert. No gross focal sensory or strength deficits.] PSYCH: Normal affect Course Vital Signs Vital signs: Vital Signs Temperature 98.1 F 05/24/25 04:43 Pulse Rate 107 H 05/24/25 04:43 Respiratory Rate 19 05/24/25 04:43 Blood Pressure 108/84 05/24/25 04:43 Pulse Oximetry 98 05/24/25 04:43 Oxygen Delivery Room Air 05/24/25 04:43 Temperature 98.1 F 05/24/25 04:43 Pulse Rate 107 H 05/24/25 04:43 Respiratory Rate 05/24/25 04:43 Blood Pressure 108/84 05/24/25 04:43 Pulse Oximetry 98 05/24/25 04:43 Oxygen Delivery Room Air 05/24/25 04:43 Medical Decision Making [facility] Narrative Medical decision making narrative: Patient presents with altered mental status, found to have high blood sugar. I did review her nursing paperwork it does appear she is only on 22 units Lantus and not on any short-acting insulin which seems to be new change, likely the cause of her symptoms, is she has no localizing symptoms, she does not have any URI symptoms or UTI symptoms. Chest x-ray on my independent interpretation does not show much consolidation or change from prior however with her very high white count I will start her on antibiotics. VBG surprisingly shows normal pH likely because patient compensating with her respirations, low bicarb. She does have gap of 27, bicarb is 6, since her potassium is 5.7 I will go ahead and start her on insulin now. Discussed with patient, sales performance manager, hospitalist for admission. Vital Signs Vital Signs: Vital Signs Temperature 98.1 F 05/24/25 04:43 Pulse Rate 107 H 05/24/25 04:43 Respiratory Rate 19 05/24/25 04:43 Blood Pressure 108/84 05/24/25 04:43 Pulse Oximetry 98 05/24/25 04:43 Oxygen Delivery Room Air 05/24/25 04:43 Temperature 98.1 F 05/24/25 04:43 Pulse Rate 107 H 05/24/25 04:43 Respiratory Rate 19 05/24/25 04:43 Blood Pressure 108/84 05/24/25 04:43 Pulse Oximetry 98 05/24/25 04:43 Oxygen Delivery Room Air 05/24/25 04:43 Lab Data 05/24/25 05:09 05/24/25 05:09 Labs: Lab Results 05/24/25 05/24/25 05/24/25 Range/Units 04:49 05:09 05:21 WBC 26.6 H (4.5-10.0) K/mm3 RBC 4.05 L (4.2-5.4) M/mm3 Hgb 12.4 (12.0-15.0) g/dL Hct 39.2 (37.0-47.0) % MCV 96.8 (80-100) fl MCH 30.6 (26-34) pg MCHC 31.6 L (32-36) g/dl RDW 12.7 (11.5-14.5) % Plt Count 512 H D (150-375) k/mm3 MPV 9.9 (7.4-10.4) fl Immature Gran % (Auto) 4.2 H (0-0.5) % Neut % (Auto) 83.1 H (45.5-73.1) % Lymph % (Auto) 6.3 L (18.3-44.2) % Elbert % (Auto) 5.8 (2.6-8.5) % Eos % (Auto) 0.1 (0-4.4) % Baso % (Auto) 0.5 (0.2-1.2) % Lymph # (Auto) 1.68 (0.9-3.2) K/mm3 Elbert # (Auto) 1.6 H (0.1-0.6) K/mm3 Eos # (Auto) 0.0 (0-0.3) K/mm3 Baso # (Auto) 0.1 (0.0-0.1) K/mm3 Abs Immat Gran (auto) 1.12 H (0.00-0.031) K/mm3 Absolute Neuts (auto) 22.1 H (1.3-6.7) K/mm3 Absolute Nucleated RBC 0.000 (0.0-0.012) K/mm3 Nucleated RBC % 0.0 (0.0-0.2) % Sodium 126 L (137-145) mmol/L Potassium 5.7 H (3.4-5.0) mmol/L Chloride 93 L (98-107) mmol/L Carbon Dioxide 6 L (22-30) mmol/L Anion Gap 27 H (4-12) mmol/L BUN 29 H D (7-17) mg/dL Creatinine 1.00 (0.7-1.0) mg/dL Estim Creat Clear Calc Not Reportable Estimated GFR 53 L (59 - ) Glucose 549 H* (65-110) mg/dL POC Capillary Glucose > 500 H* (65-105) mg/dl Calcium 9.2 (8.4-10.2) mg/dL Total Bilirubin 0.7 (0.2-1.3) mg/dL AST 29 (14-36) U/L ALT 20 (6-35) U/L Alkaline Phosphatase 156 H (38-126) U/L Total Protein 6.3 (6.3-8.2) g/dL Albumin 4.0 (3.5-5.1) g/dL Beta-Hydroxybutyrate/Acetoacetate Pending Urine Color Yellow (Yellow) Urine Appearance Clear (Clear) Urine pH 5.5 (5.0-9.0) Ur Specific [place] 1.026 (1.001-1.035) Urine Protein Negative (Negative) mg/dL Urine Glucose (UA) 3+ H (Negative) mg/dL Urine Ketones 2+ H (Negative) mg/dL Ur Blood (Man) Negative (Negative) Urine Nitrate Negative (Negative) Urine Bilirubin Negative (Negative) Urine Urobilinogen 0.2 (<2.0) mg/dL Leukocyte Esterase Rfl Negative (Negative) JD/UL ABG Data ABG results: 05/24/25 05:03 VBG pH 7.349 VBG pCO2 19.4 L* VBG pO2 49.3 H VBG HCO3 10.4 L FiO2 21 Critical Care Time Critical Care Time Critical Care Time: Yes Total Critical Care Time: 31 Discharge Plan Discharge Clinical Impression: DKA (diabetic ketoacidosis) Patient Disposition: Still a Patient Condition: Serious Patient Language: Icelandic Prescriptions: No Action (DME) blood-glucose meter [OneTouch Ultra2 Meter] Kit See Rx Instructions .Route Qty: 1 0RF Rx Instructions: Daily (DME) blood glucose control, normal [OneTouch Ultra Control] Solution See Rx Instructions .Route Qty: 1 5RF Rx Instructions: As directed (DME) lancets [OneTouch Delica Plus Lancet] 33 gauge misc See Rx Instructions .Route Qty: 100 5RF Rx Instructions: TID levothyroxine [Synthroid] 137 mcg tablet 137 mcg PO DAILY Qty: 90 2RF acetaminophen 500 mg tablet See Rx Instructions .ROUTE .COMPLEX Qty: 60 3RF Dose Instruction: TAKE 2 TABLETS EVERY 4-6 HOURS NEEDED FOR PAIN Rx Instructions: TAKE 2 TABLETS EVERY 4-6 HOURS NEEDED FOR PAIN (DME) blood-glucose meter [Blood Glucose Monitoring] Kit See Rx Instructions .Route Qty: 1 0RF Rx Instructions: As directed (DME) OneTouch Ultra Test Strip See Rx Instructions .Route Qty: 100 5RF Rx Instructions: four times daily glucose 4 gram tablet,chewable 4 g PO Q15M PRN (Reason: hypoglycemia) Qty: 90 4RF Rx Instructions: until symptoms of low blood sugar are controlled (DME) pen needle, diabetic [BD Ultra-Fine Mini Pen Needle] 31 gauge x 3/16 needle See Rx Instructions .ROUTE .COMPLEX Qty: 100 3RF Dose Instruction: USE FOUR TIMES DAILY FOR INSULIN INJECTIONS. Rx Instructions: USE FOUR TIMES DAILY FOR INSULIN INJECTIONS. glucosamine HCl 500 mg tablet 500 mg PO DAILY Qty: 30 3RF Rx Instructions: administer with a meal; dose unknown simvastatin 40 mg tablet See Rx Instructions .ROUTE .COMPLEX Qty: 90 3RF Dose Instruction: TAKE 1 TABLET BY MOUTH AT BEDTIME. -HS- Rx Instructions: TAKE 1 TABLET BY MOUTH AT BEDTIME. -HS- lisinopril 10 mg tablet See Rx Instructions .ROUTE .COMPLEX Qty: 90 3RF Dose Instruction: TAKE 1 TABLET BY MOUTH DAILY. --NOON-- Rx Instructions: TAKE 1 TABLET BY MOUTH DAILY. --NOON-- fluticasone propionate 50 mcg/actuation spray,suspension See Rx Instructions .ROUTE .COMPLEX Qty: 16 5RF Dose Instruction: USE 1 SPRAY IN EACH NOSTRIL ONCE A DAY. SHAKE GENTLY. Rx Instructions: USE 1 SPRAY IN EACH NOSTRIL ONCE A DAY. SHAKE GENTLY. albuterol sulfate 90 mcg/actuation HFA aerosol inhaler See Rx Instructions .ROUTE .COMPLEX Qty: 18 2RF Dose Instruction: USE 2 PUFFS 4 TIMES A DAY NEEDED. SHAKE WELL Rx Instructions: USE 2 PUFFS 4 TIMES A DAY NEEDED. SHAKE WELL (DME) FreeStyle Test Strip See Rx Instructions .Route Qty: 100 5RF Rx Instructions: TID omeprazole 40 mg capsule,delayed release(DR/EC) See Rx Instructions .ROUTE .COMPLEX Qty: 30 2RF Dose Instruction: 40 MG ORALLY DAILY Rx Instructions: 40 MG ORALLY DAILY Linzess 145 mcg capsule See Rx Instructions .ROUTE .COMPLEX Qty: 30 2RF Dose Instruction: TAKE 1 CAPSULE BY MOUTH ONCE DAILY AT AT NOON Rx Instructions: TAKE 1 CAPSULE BY MOUTH ONCE DAILY AT AT NOON Farxiga 10 mg tablet See Rx Instructions .ROUTE .COMPLEX Qty: 30 2RF Dose Instruction: TAKE 1 TABLET BY MOUTH DAILY (AM) Rx Instructions: TAKE 1 TABLET BY MOUTH DAILY (AM) metformin 500 mg tablet See Rx Instructions .ROUTE .COMPLEX Qty: 180 0RF Dose Instruction: 500 MG ORALLY TWICE A DAY Rx Instructions: 500 MG ORALLY TWICE A DAY oxybutynin chloride 15 mg tablet extended release 24hr See Rx Instructions .ROUTE .COMPLEX Qty: 30 2RF Dose Instruction: TAKE ONE TABLET BY MOUTH ONCE DAILY. -NOON- Rx Instructions: TAKE ONE TABLET BY MOUTH ONCE DAILY. -NOON- alendronate 70 mg tablet See Rx Instructions .ROUTE .COMPLEX Qty: 4 2RF Dose Instruction: TAKE 1 TABLET BY MOUTH AT THE SAME TIME EACH WEEK ON MONDAYS. Rx Instructions: TAKE 1 TABLET BY MOUTH AT THE SAME TIME EACH WEEK ON MONDAYS. insulin glargine-yfgn 100 unit/mL (3 mL) insulin pen See Rx Instructions .ROUTE .COMPLEX Qty: 15 5RF Dose Instruction: 22 UNIT (0.22 ML) SUBCUTANEOUSLY EVERY MORNING Rx Instructions: 22 UNIT (0.22 ML) SUBCUTANEOUSLY EVERY MORNING Follow-up/Referrals: Ji Juan, [Primary Care Provider, Family Practice]
[2025-05-24 05:10] LABS: Fractional Inspired Oxygen 21 %; HCO3 VBG 10.4 mEq/l (24.0-30.0); PO2 VBG 49.3 mmHg (35.0-45.0); pH VBG 7.349 (7.300-7.400)
[2025-05-24 05:14] LABS: PCO2 VBG 19.4 mmHg (42.0-48.0)
[2025-05-24 05:21] LABS: Hematocrit 39.2 % (37.0-47.0); Hemoglobin 12.4 g/dL (12.0-15.0); Immature Granulocyte Percent A 4.2 % (0-0.5); Lymphocytes Absolute Auto 1.68 K/mm3 (0.9-3.2); Mean Corpuscular HGB Conc 31.6 g/dl (32-36); Mean Corpuscular Hemoglobin 30.6 pg (26-34); Mean Corpuscular Volume 96.8 fl (80-100); Nucleated Red Blood Cells Absolute Auto 0.000 K/mm3 (0.0-0.012); Nucleated Red Blood Cells Perc 0.0 % (0.0-0.2); Platelet Count Result 512 k/mm3 (150-375); Red Blood Count 4.05 M/mm3 (4.2-5.4); White Blood Count 26.6 K/mm3 (4.5-10.0)
[2025-05-24 05:27] LABS: Add Urine Microscopic? NO; Appearance Urine Clear (Clear); Glucose Urine UA 3+ mg/dL (Negative); Leukocyte Esterase Ur Negative LEU/UL (Negative); Nitrate Urine Negative (Negative); Specific Grav Ur 1.026 (1.001-1.035)
--- OUTSIDE RECORDS SUMMARY | 2025-05-24 05:27 | XMS_ITS | Patient Health Record ---
Author Organization [facility] Address [address] [place], [place] [id number] Care Team Providers Care Medical Delivery Driver Name Role Phone Aakash Eaton Unavailable Unavailable Reason For Referral No Information Medications Medication SIG (Take, Route, Frequency, Duration) Notes Start Date End Date Status Lisinopril 10 MG Oral Tablet ORAL lisinopril 10 MG Oral TabletOriginal Medicationlisinopril 10 MG Oral Tablet *Reorder from [employer] for eRx and Interaction Alerts* 4 Active alendronic acid 70 MG Oral Tablet [Fosamax] ORAL alendronic acid 70 MG Oral Tablet [Fosamax]Original Medicationalendronic acid 70 MG Oral Tablet [Fosamax] *Reorder from [employer] for eRx and Interaction Alerts* 4 Active 3 ML insulin glargine 100 UNT/ML Pen Injector [Lantus] 3 ML insulin glargine 100 UNT/ML Pen Injector [Lantus]Original Medication3 ML insulin glargine 100 UNT/ML Pen Injector [Lantus] *Reorder from [employer] for eRx and Interaction Alerts* 4 Active Glimepiride 1 MG Oral Tablet ORAL glimepiride 1 MG Oral TabletOriginal Medicationglimepiride 1 MG Oral Tablet *Reorder from [employer] for eRx and Interaction Alerts* 4 Active Simvastatin 10 MG Oral Tablet ORAL simvastatin 10 MG Oral TabletOriginal Medicationsimvastatin 10 MG Oral Tablet *Reorder from [employer] for eRx and Interaction Alerts* 4 Active sitagliptin 25 MG Oral Tablet [Januvia] ORAL sitagliptin 25 MG Oral Tablet [Januvia]Original Medicationsitagliptin 25 MG Oral Tablet [Januvia] [facility]* 4 Active oxybutynin chloride 1 MG/ML Oral Solution ORAL oxybutynin chloride 1 MG/ML Oral SolutionOriginal Medicationoxybutynin chloride 1 MG/ML Oral Solution *[facility]* 4 Active levothyroxine sodium 0.1 MG Oral Capsule ORAL levothyroxine sodium 0.1 MG Oral CapsuleOriginal Medicationlevothyroxine sodium 0.1 MG Oral Capsule *Reorder from [facility] for eRx and Interaction Alerts* 4 Active estrogens, conjugated (ASSISTED) 0.3 MG Oral Tablet [Premarin] ORAL estrogens, conjugated (ASSISTED) 0.3 MG Oral Tablet [Premarin]Original Medicationestrogens, conjugated (ASSISTED) 0.3 MG Oral Tablet [Premarin] *Reorder from [facility] for eRx and Interaction Alerts* 4 Active Plan Of Treatment No Information Insurance Providers Payer Name Payer Address Payer Phone Subscriber Number Group Number Insured Name Patient Relationship to Insured Coverage Start Date Coverage End Date Medicare Part B [place] [address] [facility] [place] [address] [id number] JUSTUS DAVIS Self - patient is the insured [facility] [address] [address] [place], [place] [id number] JUSTUS DAVIS Self - patient is the insured
--- OUTSIDE RECORDS SUMMARY | 2025-05-24 05:27 | XMS_ITS | Clinical Summary ---
Author Organization [facility] [address] [place] [address] [facility] Address [address] [place] [id number] Care Team Providers Care Rip And Groove Machine Operator Name Role Phone Jey Zuñiga MD Unavailable [...] (six) hours as needed for pain. Active [id number] 600 mg calcium- 800 unit-50 mg tablet [...] mL (22 Units total) under the skin marine operations coordinator before breakfast 30 mL 1 1 Active levothyroxine (SYNTHROID) 137 mcg tablet TAKE ONE TABLET BY MOUTH ONCE DAILY SONAR WATCHSTANDER BEFORE BREAKFAST 30 tablet 2 Active Januvia 100 mg tablet TAKE 1 TABLET BY MOUTH DAILY. -NOON- 30 tablet 2 Active Active Problems Problem Noted Date Diagnosed Date Acquired hypothyroidism 10/12/2020 Assessment & Plan (10/12/2020 1:14 PM SILK PRINTER): Continue Levothyroxine Check TSH , free T4 [...] Simvastatin Assessment & Plan (10/12/2020 1:14 PM SILK PRINTER): Goal of treatment , LDL cholesterol less [...] profile Assessment & Plan (09/27/2019 7:25 PM SILK PRINTER): Check lipid panel Assessment & Plan (04/30/2019 [...] Lisinopril Assessment & Plan (10/12/2020 1:13 PM SILK PRINTER): Goal blood pressure is less than 140/85 Low salt diet was discussed andd recommended The importance of daily aerobic exercise was also emphasized. Continue current meds, including MAGDA-I or ARB, e.g. Check microalbumin Assessment & Plan (09/27/2019 7:25 PM SILK PRINTER): Controlled on current medications. Continue plan. Assessment & Plan (04/30/2019 4:47 PM CDT): Goal blood pressure is less than 140/85 Low salt diet recommended Daily aerobic exercise Continue current meds, including MAGDA-I or ARB with lisinopril Assessment & Plan (12/18/2018 10:40 AM CDT): Controlled on current medications. Assessment & Plan (10/16/2018 10:27 AM SILK PRINTER): Goal blood pressure is less than 140/85 [...] medications. Assessment & Plan (09/19/2017 11:10 AM SILK PRINTER): Controlled on current medications. Assessment & Plan [...] medications. Assessment & Plan (09/19/2017 11:09 AM SILK PRINTER): Check PCP labs. Will order lipid panel [...] Januvia Assessment & Plan (10/12/2020 1:13 PM SILK PRINTER): Lower Tresiba to 20 units in the morning Humalog, before meals : For sugars under 100, none 101-150 2 units 151-200 4 units 201-250 6 units Over 251 8 units Continue Januvia 101-150, and Humalog, no more than 8 units Will request hba1c Assessment & Plan (09/27/2019 7:15 PM SILK PRINTER): A1c improved to 7.3. Decrease Tresiba to [...] goal hba1c is under 7.0 to prevent senior living diabetes complications ( eye , kidney and [...] it . Monitor your sugar levels with [employer] glucose monitor Bring your sugar meter and [...] reviewed. Assessment & Plan (10/16/2018 10:25 AM SILK PRINTER): Hba1c was Lab Results Component Value Date [...] goal hba1c is under 8.0 to prevent senior living diabetes complications ( eye , kidney and [...] daily. Assessment & Plan (09/19/2017 11:12 AM SILK PRINTER): A1c 8.8. Wide variability in BG appears [...] Hx Other Medical hip surgery; Co mments: [facility] 04/26/2016 - Family History Medical History [...] on file Legal Sex Female 11:14 AM SILK PRINTER Gender Identity Not on file Sexual Orientation [...] of Treatment Not on file Insurance MEDICARE [facility] Care Teams Rip And Groove Machine Operator Relationship Specialty Start Date End Date Ji Juan DO [address], [place] [id number] PCP - General Family Medicine 11/16/21 Jey Zuñiga [place] [id number] [place] [address] Consulting Physician Endocrinology Diabetes & Metabolism 04/29/19
--- NOTE | 2025-05-24 05:38 | PC.NURSE ---
VORB per ERP to let the NS liter bolus that EMS started en route to finish infusing.
[2025-05-24 05:42] LABS: Alanine Aminotransferase 20 U/L (6-35); Albumin Level 4.0 g/dL (3.5-5.1); Alkaline Phosphatase 156 U/L (38-126); Anion Gap 27 mmol/L (4-12); Aspartate Amino Transferase 29 U/L (14-36); Bilirubin,Total 0.7 mg/dL (0.2-1.3); Blood Urea Nitrogen 29 mg/dL (7-17); Calcium 9.2 mg/dL (8.4-10.2); Carbon Dioxide 6 mmol/L (22-30); Chloride 93 mmol/L (98-107); Estimated Glomerular Filt Rate 53; Glucose 549 mg/dL (65-110); Potassium 5.7 mmol/L (3.4-5.0); Sodium 126 mmol/L (137-145); Total Protein 6.3 g/dL (6.3-8.2)
[2025-05-24] MEDS: LACTATED RINGERS 1,000 ML 999 ML IV CONT ×2 (05:42→08:22)
[2025-05-24] MEDS: AZITHROMYCIN 500 MG TABLET PO (06:16)
[2025-05-24] MEDS: cefTRIAXone 1 GM in SODIUM CHLORIDE 0.9% IV 50 ML 100 ML IVPB (06:17)
[2025-05-24] MEDS: SODIUM CHLORIDE 0.9% IV 1,000 ML 150 ML IV CONT (06:17)
[2025-05-24] MEDS: INSULIN HUMAN REGULAR (*BKC) 100 UNITS in SODIUM CHLORIDE 0.9% IV 99 ML IV CONT (06:28)
[2025-05-24] MEDS: INSULIN HUMAN REGULAR (*BKC) 100 UNITS/ML IV PUSH (06:28)
[2025-05-24 06:31] LABS: Magnesium 2.3 mg/dL (1.6-2.3)
[2025-05-24 07:28] LABS: MRSA (PCR) NOT DETECTED (NOT DETECTE)
[2025-05-24 07:43] LABS: Beta-Hydroxybutyrate/Acetoace. 7.59 mmol/L (0.02-0.27)
--- NOTE | 2025-05-24 07:44 | ADMGEN ---
This patient, Pita Palmer, was admitted to Intensive Care Unit-1 at 0648. Patient/family oriented to hospital policies and general routines including ID bracelet, bed and alarms, visiting hours, pain management, procedures, bathroom and other care routines, personal items, smoking policy, room service/diet, and visiting hours. Information on how to activate the Rapid Response Team has been discussed. Patient/Family are encouraged to report perceived risks to care and to ask questions if they do not understand what they are told or what they should do.
--- NOTE | 2025-05-24 08:30 | WPDCNINT ---
Assessment and Plan Assessment and plan (1) DKA (diabetic ketoacidosis): Code(s): E11.10 - Type 2 diabetes mellitus with ketoacidosis without coma Status: Acute Assessment and Plan: Pt was given 1 LI VF bolus and started on infusion. She appears dehydrated. I will give additional 1 L bolus. Continue IV fluids Insulin infusion started and Q1H glucose monitoring is being done Serial labs ordered Replace electrolytes as needed Consult clinical educator and dietitian No objective evidence of infection at this time. Monitor. (2) Hypothyroid: Code(s): E03.9 - Hypothyroidism, unspecified Status: Chronic Assessment and Plan: Continue levothyroxine. Check TSH (3) GERD (gastroesophageal reflux disease): Code(s): K21.9 - Gastro-esophageal reflux disease without esophagitis Status: Chronic Assessment and Plan: Continue Protonix (4) SIRS (systemic inflammatory response syndrome): Code(s): R65.10 - Systemic inflammatory response syndrome (SIRS) of non-infectious origin without acute organ dysfunction Status: Acute Assessment and Plan: Patient meets criteria for SIRS. There is no objective sign of infection at this time. A UA and chest x-ray negative. She is afebrile. She did receive a dose of antibiotics in the ER I will hold further antibiotics. Check procalcitonin level. (5) Electrolyte abnormality: Code(s): E87.8 - Other disorders of electrolyte and fluid balance, not elsewhere classified Status: Acute Assessment and Plan: Pseudo hyponatremia and hyperkalemia likely secondary to dehydration DKA. She is getting fluids and insulin. Repeat BMP ordered. Monitor Plan DVT prophylaxis -Lovenox Nutrition - NPO Code Status - Full Code. Patient has a friend in [place] who is her healthcare power real estate associate attorney Total Critical Care Time - 30 minutes Due to a high probability of clinically significant, life threatening deterioration, the patient required my highest level of preparedness to intervene emergently and I personally spent this critical care time directly and personally managing the patient. This critical care time included obtaining a history; examining the patient; pulse oximetry; ordering and review of studies; arranging urgent treatment with development of a management plan; evaluation of patient's response to treatment; frequent reassessment; and discussions with other providers. It was exclusive of separately billable procedures and treating other patients and teaching time. Please see Assessment and Plan section and the rest of the note for further information on patient assessment and treatment Hogshead Mat Assembler Consult Note Consult date: 05/24/25 Reason for consult: DKA HPI: Pita Palmer is a 80 year old female with past medical history of diabetes mellitus who is a resident at assisted living facility was sent by staff as she was confused. They checked her blood sugar was 600 and above. During my evaluation she states that she is here because of high blood sugars. She also states she has have nausea but no vomiting. She is unable to tell me when the nausea started. She denies any chest pain abdominal pain diarrhea constipation fever shortness of breath cough dizziness lightheadedness or loss of consciousness. She states she administers her insulin herself but is provided by the staff. She claims compliance with all medications. She denies dysuria hematuria hematochezia melena. All other systems were reviewed and were negative Workup in the ER showed WBC 26.6 platelet 512 VBG 7.34/19/49/10 Sodium 126 potassium 5.7 CO2 6 anion gap 27 BUN 29 creatinine 1 blood glucose 549 and beta hydroxybutyrate 7.59 UA negative for UTI chest x-ray negative for any acute cardiopulmonary process Patient was given 1 L IV fluid bolus. Also 1 dose of Rocephin azithromycin in the ER and was started on insulin infusion admitted to ICU for further evaluation management patient's mental status has improved and she is alert oriented at this time. Review of Systems Review of Systems: All systems reviewed & are unremarkable except as noted in HPI and below (HPI) [facility] Past Medical History Medical History Type 2 diabetes mellitus with hyperglycemia Eczema Nicotine dependence Fracture of right hip requiring operative repair Iron deficiency anemia GERD with esophagitis Osteoporosis Hypothyroid Arthritis GERD (gastroesophageal reflux disease) Hypertension Hyperlipidemia DM (diabetes mellitus), type 2 Surgical History Surgical History History of surgery on lower extremity right femur repair History of hip surgery repair left hip H/O bilateral cataract extraction H/O knee surgery (09/09/19) ORIF of left patella Hx of appendectomy Hx of hysterectomy Family History Family History Brother Family history of type 2 diabetes mellitus Hypertension Mother , mother of some kind of intra-abdominal cancer Stomach cancer Father , father of lung cancer Acute myocardial infarction Family history of type 2 diabetes mellitus Hypertension Heart disease Malignant neoplasm of prostate Social History Social History Social History: The patient stated that she lives alone. She has no children. She said that her brother is her only relative. She stated that she did get fired from her job and she is retired early. She still continues to smoke a pack a cigarettes a day. No alcohol or illicit drug. Her friend is durable power real estate associate attorney for healthcare. She desires to be a full code Smoking packs per day: 0.75 Smoking cigarettes per day: 15.0 Years smoked: 57 Smoking pack-years: 42.75 Smoking status: Current every day smoker Tobacco type: cigarettes Second hand tobacco smoke exposure: No Additional smoking assessment comments: vape every once in a while Alcohol intake: never Substance use: never Substance use type: does not use Lack of Transportation: No Lack of Food: Never True Current Housing: I Have Housing Concerned About Future Housing: No Difficulty Paying Gas/Electric Bills: No Difficulty Paying for Meds: No Currently Unemployed: No Education: High School Diploma/GED Difficulty w/ Childcare or Family Care: No Living arrangements: alone Occupation/Education: retired Gender identity (if verbalized by the patient): Female Spiritual care concerns: No Agree to blood products: Yes Meds Home Medications and Allergies Home Medications ?Medication ?Instructions ?Recorded ?Confirmed ?Type acetaminophen 500 mg tablet See Rx Instructions .Route 06/20/20 05/24/25 Rx .COMPLEX #60 tabs blood-glucose meter (Blood Glucose #1 ea 01/18/22 02/18/25 Rx Monitoring kit) Held on 10/31/22. Instructions: .Provider Order blood glucose control, normal #1 ea 02/13/22 02/18/25 Rx (OneTouch Ultra Control solution) Held on 10/31/22. Instructions: .Provider Order blood-glucose meter (OneTouch #1 ea 02/13/22 02/18/25 Rx Ultra2 Meter kit) Held on 10/31/22. Instructions: .Provider Order lancets 33 gauge (OneTouch Delica #100 ea 02/13/22 02/18/25 Rx Plus Lancet) Held on 10/31/22. Instructions: .Provider Order blood sugar diagnostic (OneTouch #100 ea 04/11/22 02/18/25 Rx Ultra Test strips) Held on 10/31/22. Instructions: .Provider Order glucose 4 gram chewable tablet 4 g PO Q15M PRN hypoglycemia #90 02/07/23 05/24/25 Rx tabs pen needle, diabetic 31 gauge x #100 ea 05/27/23 02/18/25 Rx 3/16 (BD Ultra-Fine Mini Pen Needle) glucosamine HCl 500 mg tablet 500 mg PO DAILY #30 tabs 11/07/23 05/24/25 Rx lisinopril 10 mg tablet See Rx Instructions .Route 09/14/24 05/24/25 Rx .COMPLEX #90 tabs simvastatin 40 mg tablet See Rx Instructions .Route 09/14/24 02/18/25 Rx .COMPLEX #90 tabs fluticasone propionate 50 See Rx Instructions .Route 09/21/24 05/24/25 Rx mcg/actuation nasal .COMPLEX #16 grams spray,suspension levothyroxine 137 mcg tablet 137 mcg PO DAILY #90 tabs 11/17/24 05/24/25 Rx (Synthroid) albuterol sulfate 90 mcg/actuation See Rx Instructions .Route 12/10/24 05/24/25 Rx aerosol inhaler .COMPLEX #18 grams blood sugar diagnostic (FreeStyle #100 ea 02/04/25 02/18/25 Rx Test strips) alendronate 70 mg tablet See Rx Instructions .Route 05/17/25 05/24/25 Rx .COMPLEX #4 tabs dapagliflozin propanediol 10 mg See Rx Instructions .Route 05/17/25 05/24/25 Rx tablet (Farxiga) .COMPLEX #30 tabs linaclotide 145 mcg capsule See Rx Instructions .Route 05/17/25 05/24/25 Rx (Linzess) .COMPLEX #30 caps metformin 500 mg tablet See Rx Instructions .Route 05/17/25 05/24/25 Rx .COMPLEX #180 tabs omeprazole 40 mg capsule,delayed See Rx Instructions .Route 05/17/25 Rx release .COMPLEX #30 ea oxybutynin chloride 15 mg See Rx Instructions .Route 05/17/25 Rx tablet,extended release 24 hr .COMPLEX #30 tabs insulin glargine-yfgn 100 unit/mL See Rx Instructions .Route 05/20/25 05/24/25 Rx (3 mL) subcutaneous pen .COMPLEX #15 mL Allergies Allergy/AdvReac Type Severity Reaction Status Date / Time No Known Allergies Allergy Verified 02/18/25 11:24 Vital Signs Vital Signs - 24 hr 05/24/25 04:43 05/24/25 06:41 05/24/25 07:00 Temperature 36.7 C 36.5 C Pulse Rate 107 H 123 H 117 H Respiratory Rate 19 17 21 H Blood Pressure 108/84 113/57 L 151/102 H Pulse Oximetry 98 100 94 Oxygen Delivery Room Air Exam Narrative: General: Pt is alert awake and in NAD Lungs/Chest: Trachea central Clear BS B/L, No crackles or wheezing. Cardiac: RRR. Normal S1 S2. No murmurs Circulation: Pedal pulses are intact and symmetrical. Abdomen: Normal bowel sounds.. Soft. NT. ND. Extremities: No clubbing, cyanosis or edema. Warm : Restrepo in place Neurologic: Follows commands. Moves all 4 extremities PERRL AO x2 Skin: No Rash HEENT: Oral mucosa dry Results Labs 05/24/25 05:09 05/24/25 05:09 Labs: Impressions Chest X-Ray 05/24/25 06:14 IMPRESSION: 1. No acute cardiopulmonary findings given portable technique. Short CBC 05/24/25 Range/Units 05:09 WBC 26.6 H (4.5-10.0) K/mm3 Hgb 12.4 (12.0-15.0) g/dL Hct 39.2 (37.0-47.0) % Plt Count 512 H D (150-375) k/mm3 BMP 05/24/25 05:09 Sodium 126 L Potassium 5.7 H Chloride 93 L Carbon Dioxide 6 L BUN 29 H D Creatinine 1.00 Glucose 549 H* Calcium 9.2 Liver Function 05/24/25 Range/Units 05:09 Total Bilirubin 0.7 (0.2-1.3) mg/dL AST 29 (14-36) U/L ALT 20 (6-35) U/L Alkaline Phosphatase 156 H (38-126) U/L Albumin 4.0 (3.5-5.1) g/dL Urine 05/24/25 Range/Units 05:21 Urine Color Yellow (Yellow) Urine Appearance Clear (Clear) Urine pH 5.5 (5.0-9.0) Ur Specific [place] 1.026 (1.001-1.035) Urine Protein Negative (Negative) mg/dL Urine Glucose (UA) 3+ H (Negative) mg/dL Quality VTE Prophylaxis VTE prophylaxis: pharmacologic ordered Hospitalist MIPS Advance Care Plan I have confirmed that the patient's Advanced Care Plan is present, code status is documented, or surrogate decision maker is listed in patient medical record.: Yes Medication Reconciliation I have utilized all available resources to obtain, update and review the patients current medications (includes all prescriptions, OTC, herbals, cannabis, and nutritional supplements).: Yes
[2025-05-24 09:53] LABS: Anion Gap 21 mmol/L (4-12); Blood Urea Nitrogen 27 mg/dL (7-17); Calcium 9.1 mg/dL (8.4-10.2); Carbon Dioxide 10 mmol/L (22-30); Chloride 100 mmol/L (98-107); Estimated CRCL calculation 31 ml/min; Estimated Glomerular Filt Rate 59; Glucose 262 mg/dL (65-110); Potassium 4.3 mmol/L (3.4-5.0); Sodium 131 mmol/L (137-145)
[2025-05-24 10:03] LABS: Hemoglobin A1C 8.6 % (<5.7)
[2025-05-24 10:37] LABS: Procalcitonin 1.4 ng/mL
[2025-05-24] MEDS: KCL 20 MEQ/D5/0.45% SOD CHL 1,000 ML 150 ML IV CONT (10:38)
[2025-05-24] MEDS: PANTOPRAZOLE SODIUM IV 40 MG VIAL IV PUSH (10:39)
[2025-05-24] MEDS: ENOXAPARIN 40 MG/0.4 ML SYRINGE SUB-Q (10:39)
[2025-05-24 10:47] LABS: Thyroid Stimulating Hormone Reflex 0.256 uIU/mL (0.465-4.68)
[2025-05-24 11:22] LABS: Free T4 Free Thyroxine Reflex 2.65 ng/dL (0.78-2.19)
[2025-05-24 13:17] LABS: Anion Gap 12 mmol/L (4-12); Blood Urea Nitrogen 26 mg/dL (7-17); Calcium 9.0 mg/dL (8.4-10.2); Carbon Dioxide 17 mmol/L (22-30); Chloride 103 mmol/L (98-107); Estimated CRCL calculation 38 ml/min; Estimated Glomerular Filt Rate > 60; Glucose 167 mg/dL (65-110); Potassium 4.3 mmol/L (3.4-5.0); Sodium 132 mmol/L (137-145)
--- NOTE | 2025-05-24 13:18 | PCFNICU ---
ICU Rounding Note: Pt current nutrition is NPO. Last recorded weight is 46.5 kg. Bowel Motility: Last BM reported 05/23 Labs Reviewed:PO4 6.1, Na 126, BUN 29, Glu 549, HbA1c 8.6% Meds Noted:Insulin Drip, Lovenox, Protonix, NS Skin: WNL Additional Notes:Patient admitted with DKA from assisted living. Patient is currently on insulin drip and NPO. Education is not appropriate at this time. Will attempted to follow up with education prior to discharge. Recommend advancing to DBCC diet when medially able. Following daily in ICU rounds.
--- NOTE | 2025-05-24 13:26 | PM.IMHP ---
H&P: HPI History of Present Illness Date/Time: 05/24/25 13:26 Chief Complaint: High blood sugar Narrative: 80 yo female with PMH of DM2, MARK, FERD, hypothyroidism HTN, and HLD who was brought from [facility] for hyperglycemia and AMS. Patient was lethargic at bedside adn was only able to say that she was brought in for high blood sugar. however she denies any chest pain, Abd pain, diarrhea, vomiting, or fall. ER eval notable for T 98, MD 98, RR 14, O2 sat 96 on room air, BP 108/84. WBC 26.6, VBG 7.349/19.4/49.3/10.4, Na 132, BG 549, A1c 8.6, Hydroxybutyrate 7.59, K 5.7, P 6.1, T4 2.65 and TSH 0.256. CXR no acute changes Patient was admitted to ICU adter she as started on IVF and insulin infusion Review of Systems Review of Systems: All other systems were reviewed and negative except as noted in chema HPI above [facility] Past Medical History Medical History Type 2 diabetes mellitus with hyperglycemia Eczema Nicotine dependence Fracture of right hip requiring operative repair Iron deficiency anemia GERD with esophagitis Osteoporosis Hypothyroid Arthritis GERD (gastroesophageal reflux disease) Hypertension Hyperlipidemia DM (diabetes mellitus), type 2 Surgical History Surgical History History of surgery on lower extremity right femur repair History of hip surgery repair left hip H/O bilateral cataract extraction H/O knee surgery (09/09/19) ORIF of left patella Hx of appendectomy Hx of hysterectomy Family History Family History Brother Family history of type 2 diabetes mellitus Hypertension Mother , mother of some kind of intra-abdominal cancer Stomach cancer Father , father of lung cancer Acute myocardial infarction Family history of type 2 diabetes mellitus Hypertension Heart disease Malignant neoplasm of prostate Social History Social History Social History: The patient stated that she lives alone. She has no children. She said that her brother is her only relative. She stated that she did get fired from her job and she is retired early. She still continues to smoke a pack a cigarettes a day. No alcohol or illicit drug. Her friend is durable power corporate development associate for healthcare. She desires to be a full code Smoking packs per day: 0.75 Smoking cigarettes per day: 15.0 Years smoked: 57 Smoking pack-years: 42.75 Smoking status: Current every day smoker Tobacco type: cigarettes Second hand tobacco smoke exposure: No Additional smoking assessment comments: vape every once in a while Alcohol intake: never Substance use: never Substance use type: does not use Lack of Transportation: No Lack of Food: Never True Current Housing: I Have Housing Concerned About Future Housing: No Difficulty Paying Gas/Electric Bills: No Difficulty Paying for Meds: No Currently Unemployed: No Education: High School Diploma/GED Difficulty w/ Childcare or Family Care: No Living arrangements: alone Occupation/Education: retired Gender identity (if verbalized by the patient): Female Spiritual care concerns: No Agree to blood products: Yes Meds Home Medications and Allergies Home Medications ?Medication ?Instructions ?Recorded ?Confirmed ?Type acetaminophen 500 mg tablet See Rx Instructions .Route 06/20/20 05/24/25 Rx .COMPLEX #60 tabs blood-glucose meter (Blood Glucose #1 ea 01/18/22 05/24/25 Rx Monitoring kit) Held on 10/31/22. Instructions: .Provider Order blood glucose control, normal #1 ea 02/13/22 05/24/25 Rx (OneTouch Ultra Control solution) Held on 10/31/22. Instructions: .Provider Order blood-glucose meter (OneTouch #1 ea 02/13/22 05/24/25 Rx Ultra2 Meter kit) Held on 10/31/22. Instructions: .Provider Order lancets 33 gauge (OneTouch Delica #100 ea 02/13/22 05/24/25 Rx Plus Lancet) Held on 10/31/22. Instructions: .Provider Order blood sugar diagnostic (OneTouch #100 ea 04/11/22 05/24/25 Rx Ultra Test strips) Held on 10/31/22. Instructions: .Provider Order glucose 4 gram chewable tablet 4 g PO Q15M PRN hypoglycemia #90 02/07/23 05/24/25 Rx tabs pen needle, diabetic 31 gauge x #100 ea 05/27/23 05/24/25 Rx 3/16 (BD Ultra-Fine Mini Pen Needle) glucosamine HCl 500 mg tablet 500 mg PO DAILY #30 tabs 11/07/23 05/24/25 Rx lisinopril 10 mg tablet See Rx Instructions .Route 09/14/24 05/24/25 Rx .COMPLEX #90 tabs simvastatin 40 mg tablet See Rx Instructions .Route 09/14/24 05/24/25 Rx .COMPLEX #90 tabs fluticasone propionate 50 See Rx Instructions .Route 09/21/24 05/24/25 Rx mcg/actuation nasal .COMPLEX #16 grams spray,suspension levothyroxine 137 mcg tablet 137 mcg PO DAILY #90 tabs 11/17/24 05/24/25 Rx (Synthroid) albuterol sulfate 90 mcg/actuation See Rx Instructions .Route 12/10/24 05/24/25 Rx aerosol inhaler .COMPLEX #18 grams blood sugar diagnostic (FreeStyle #100 ea 02/04/25 05/24/25 Rx Test strips) alendronate 70 mg tablet See Rx Instructions .Route 05/17/25 05/24/25 Rx .COMPLEX #4 tabs dapagliflozin propanediol 10 mg See Rx Instructions .Route 05/17/25 05/24/25 Rx tablet (Farxiga) .COMPLEX #30 tabs linaclotide 145 mcg capsule See Rx Instructions .Route 05/17/25 05/24/25 Rx (Linzess) .COMPLEX #30 caps metformin 500 mg tablet See Rx Instructions .Route 05/17/25 05/24/25 Rx .COMPLEX #180 tabs omeprazole 40 mg capsule,delayed See Rx Instructions .Route 05/17/25 05/24/25 Rx release .COMPLEX #30 ea oxybutynin chloride 15 mg See Rx Instructions .Route 05/17/25 05/24/25 Rx tablet,extended release 24 hr .COMPLEX #30 tabs insulin glargine-yfgn 100 unit/mL See Rx Instructions .Route 05/20/25 05/24/25 Rx (3 mL) subcutaneous pen .COMPLEX #15 mL loratadine 10 mg tablet (Allergy 10 mg PO DAILY 05/24/25 05/24/25 History Relief (loratadine)) Allergies Allergy/AdvReac Type Severity Reaction Status Date / Time No Known Allergies Allergy Verified 02/18/25 11:24 Vital Signs Vital Signs - 24 hr 05/24/25 04:43 05/24/25 06:41 05/24/25 07:00 Temperature 98.1 F 97.7 F Pulse Rate 107 H 123 H 117 H Respiratory Rate 19 17 21 H Blood Pressure 108/84 113/57 L 151/102 H Pulse Oximetry 98 100 94 Oxygen Delivery Room Air 05/24/25 08:00 05/24/25 08:00 05/24/25 09:07 Temperature 98 F Pulse Rate 95 96 Respiratory Rate 16 Blood Pressure 104/48 L Pulse Oximetry 95 96 Oxygen Delivery Room Air 05/24/25 10:00 05/24/25 10:00 Temperature Pulse Rate 96 96 Respiratory Rate 21 H Blood Pressure 104/64 Pulse Oximetry 95 Oxygen Delivery Exam Narrative: General: alert and comfortable Eyes: EOMI, PERRLA ENNT External ears normal, Neck is supple, no masses, Respiratory systems: Clear to auscultation Cardiovascular S1, S2, normal rhythm, no murmur, rub, or gallop; no thrill or palpable murmurs on palpation. Gastrointestinal: soft, non-tender, and non-distended abdomen with no masses; BS present Skin: no rash, lesions, ulcerations, subcutaneous nodules or induration Musculoskeletal: no abnormality and no tenderness, normal ROM Neurologic: Alert and oriented x3, non focal Mental Status Exam: normal affect H&P: Results Labs Labs: Short CBC 05/24/25 Range/Units 05:09 WBC 26.6 H (4.5-10.0) K/mm3 Hgb 12.4 (12.0-15.0) g/dL Hct 39.2 (37.0-47.0) % Plt Count 512 H D (150-375) k/mm3 BMP 05/24/25 05/24/25 05/24/25 05:09 09:05 12:53 Sodium 126 L 131 L 132 L Potassium 5.7 H 4.3 4.3 Chloride 93 L 100 103 Carbon Dioxide 6 L 10 L 17 L BUN 29 H D 27 H 26 H Creatinine 1.00 0.92 0.75 Glucose 549 H* 262 H 167 H Calcium 9.2 9.1 9.0 Liver Function 05/24/25 Range/Units 05:09 Total Bilirubin 0.7 (0.2-1.3) mg/dL AST 29 (14-36) U/L ALT 20 (6-35) U/L Alkaline Phosphatase 156 H (38-126) U/L Albumin 4.0 (3.5-5.1) g/dL Urine 05/24/25 Range/Units 05:21 Urine Color Yellow (Yellow) Urine Appearance Clear (Clear) Urine pH 5.5 (5.0-9.0) Ur Specific [place] 1.026 (1.001-1.035) Urine Protein Negative (Negative) mg/dL Urine Glucose (UA) 3+ H (Negative) mg/dL Assessment and Plan Assessment and plan (1) DKA (diabetic ketoacidosis): Code(s): E11.10 - Type 2 diabetes mellitus with ketoacidosis without coma Status: Acute Plan DKA Patient presented with hyperglycemia with elevated anion gap and elevated hydroxybutyrate Continue IVF, and insulin infusion, NPO until DKA resolves Monitor electrolytes and adjust insulin infusion and IVF accordingly Turbine Technician following Leukocytosis WBC 26.6 likely from dehydration Contineu IVF and monitor DM2 continue above care and when DKA resolved continue home regiment and adjust accordingly Hypothyroidism Thyroid studies showed hyperthyroidism Decreased Levothyroxine from 137 to 125mcg monitor HTN titrate home meds with clinical course HLD continue home meds DVT prophylaxis on Sq Lovenox Full code Hospitalist MIPS Advance Care Plan I have confirmed that the patient's Advanced Care Plan is present, code status is documented, or surrogate decision maker is listed in patient medical record.: Yes Medication Reconciliation I have utilized all available resources to obtain, update and review the patients current medications (includes all prescriptions, OTC, herbals, cannabis, and nutritional supplements).: Yes
[2025-05-24] MEDS: INSULIN GLARGINE (*BKC) 100 UNITS/ML 20 UNITS SUB-Q ×2 (16:10→22:29)
[2025-05-24] MEDS: INSULIN ASPART (*BKC) 100 UNITS/ML SUB-Q (22:25)
[2025-05-24] MEDS: NICOTINE (*PBKC) 21 MG PATCH 1 PATCH TRANSDERM (22:25)
[2025-05-24] MEDS: LACTATED RINGERS 1,000 ML 75 ML IV CONT (22:25)
[2025-05-25] VITALS (7 sets, daily range): BP systolic 121–144; BP diastolic 62–75; PULSE 60–88; RESP 16–18; TEMP 36.3–37; O2SAT 97–100
--- NOTE | 2025-05-25 03:47 | PC.NURSE ---
Pt transferred to 322 bed 2
--- NOTE | 2025-05-25 04:45 | PC.NURSE ---
Notified that Pt. was to be on tele when transferred from ICU to our unit. No tele available at this time due to [address] Morel notified and requested that AM labs (CBC, Comp, Mag) be drawn right away with results to be called to him. OK for Pt. to remain off tele at this time.
[2025-05-25 05:23] LABS: Hematocrit 32.0 % (37.0-47.0); Hemoglobin 10.4 g/dL (12.0-15.0); Mean Corpuscular HGB Conc 32.5 g/dl (32-36); Mean Corpuscular Hemoglobin 30.2 pg (26-34); Mean Corpuscular Volume 93.0 fl (80-100); Platelet Count Result 413 k/mm3 (150-375); Red Blood Count 3.44 M/mm3 (4.2-5.4); White Blood Count 16.7 K/mm3 (4.5-10.0)
[2025-05-25] MEDS: LEVOTHYROXINE SODIUM 125 MCG TABLET PO (06:38)
[2025-05-25 07:09] LABS: Alanine Aminotransferase 17 U/L (6-35); Albumin Level 3.1 g/dL (3.5-5.1); Alkaline Phosphatase 100 U/L (38-126); Anion Gap 3 mmol/L (4-12); Aspartate Amino Transferase 31 U/L (14-36); Bilirubin,Total 0.2 mg/dL (0.2-1.3); Blood Urea Nitrogen 19 mg/dL (7-17); Calcium 8.7 mg/dL (8.4-10.2); Carbon Dioxide 26 mmol/L (22-30); Chloride 102 mmol/L (98-107); Estimated CRCL calculation 51 ml/min; Estimated Glomerular Filt Rate > 60; Glucose 63 mg/dL (65-110); Magnesium 2.0 mg/dL (1.6-2.3); Potassium 3.6 mmol/L (3.4-5.0); Sodium 131 mmol/L (137-145); Total Protein 5.3 g/dL (6.3-8.2)
[2025-05-25] MEDS: PANTOPRAZOLE SODIUM IV 40 MG VIAL IV PUSH (08:21)
[2025-05-25] MEDS: ENOXAPARIN 40 MG/0.4 ML SYRINGE SUB-Q (08:21)
--- NOTE | 2025-05-25 08:35 | PM.IMPN ---
Progress Note: A&P Assessment and Plan (1) DKA (diabetic ketoacidosis): Code(s): E11.10 - Type 2 diabetes mellitus with ketoacidosis without coma Status: Acute Plan DKA/DM 2 Patient presented with hyperglycemia with elevated anion gap and elevated hydroxybutyrate DKA resolved Patient currently on Lantus 15 units and low-dose SSI Leukocytosis WBC 26.6< 16.7 likely from dehydration Contineu IVF and monitor Possibly reactive Hypothyroidism Thyroid studies showed hyperthyroidism Decreased Levothyroxine from 137 to 125mcg monitor HTN titrate home meds with clinical course HLD continue home meds DVT prophylaxis on Sq Lovenox Full code Subjective Date/time seen: 05/25/25 08:35 Interval history: Patient had episodes of hypoglycemia. Lantus decreased from 20 units to 15 units under sliding scale has been downgraded from moderate to mild SSI Review of Systems Review of Systems: All other systems were reviewed and negative except as noted in chema HPI above All systems reviewed & are unremarkable except as noted in HPI and below (HPI) Exam Narrative: General: alert and comfortable Eyes: EOMI, PERRLA ENNT External ears normal, Neck is supple, no masses, Respiratory systems: Clear to auscultation Cardiovascular S1, S2, normal rhythm, no murmur, rub, or gallop; no thrill or palpable murmurs on palpation. Gastrointestinal: soft, non-tender, and non-distended abdomen with no masses; BS present Skin: no rash, lesions, ulcerations, subcutaneous nodules or induration Musculoskeletal: no abnormality and no tenderness, normal ROM Neurologic: Alert and oriented x3, non focal Mental Status Exam: normal affect Objective Data Vital Signs Vital Signs: Vital Signs - 24 hr 05/24/25 09:07 05/24/25 10:00 05/24/25 10:00 Temperature Pulse Rate 96 96 Respiratory Rate 21 H Blood Pressure 104/64 Pulse Oximetry 96 95 Oxygen Delivery Room Air Fraction of Inspired Oxygen 05/24/25 12:00 05/24/25 12:00 05/24/25 14:00 Temperature 98.4 F Pulse Rate 83 83 85 Respiratory Rate 15 Blood Pressure 103/52 L Pulse Oximetry 98 Oxygen Delivery Fraction of Inspired Oxygen 05/24/25 14:00 05/24/25 16:00 05/24/25 16:00 Temperature 98.4 F Pulse Rate 86 79 79 Respiratory Rate 20 19 Blood Pressure 107/59 L 118/48 L Pulse Oximetry 98 100 Oxygen Delivery Fraction of Inspired Oxygen 05/24/25 19:49 05/24/25 20:00 05/24/25 20:00 Temperature Pulse Rate 90 90 90 Respiratory Rate 20 20 Blood Pressure Pulse Oximetry 99 99 Oxygen Delivery Room Air Room Air Fraction of Inspired Oxygen 21 05/24/25 22:00 05/25/25 00:00 05/25/25 06:00 Temperature 98.2 F 97.4 F L Pulse Rate 75 75 72 Respiratory Rate 16 16 Blood Pressure 113/61 121/75 Pulse Oximetry 97 97 Oxygen Delivery Fraction of Inspired Oxygen Intake/Output Intake/Output: Intake & Output 05/22/25 05/23/25 05/24/25 05/25/25 23:59 23:59 23:59 23:59 Intake Total 1329.7 Output Total 600 450 Balance 729.7 -450 Meds/Results Medications: Active Medications Generic Name Dose Route Start Last Admin Trade Name Freq PRN Reason Stop Dose Admin Dextrose 12.5 gm 05/24/25 05:43 Dextrose 50% 25 Gm/50 Ml Syringe IV PUSH PRN PRN Hypoglycemia Protocol Enoxaparin Sodium 40 mg 05/24/25 09:00 05/25/25 08:21 Enoxaparin 40 Mg/0.4 Ml Syringe SUB-Q 40 mg DAILY WADE Administration Glucagon 1 mg 05/24/25 05:43 Glucagon For Inj 1 Mg Vial IM PRN PRN Hypoglycemia Protocol Glucose 15 gm 05/24/25 05:43 Glucose Oral Gel 15 Gm Of Glucse In 37.5 Gm Tube PO PRN PRN Hypoglycemia Protocol Dextrose 1,000 mls @ 100 mls/hr 05/24/25 05:43 Dextrose 5% 1,000 Ml IVPB PRN PRN Hypoglycemia Protocol Lactated Ringer's 1,000 mls @ 75 mls/hr 05/24/25 14:20 05/24/25 22:25 Lr - Lactated Ringers Iv IV CONT 75 mls/hr .[id number] WADE Administration Insulin Aspart 3 - 6 units 05/24/25 17:00 05/25/25 08:21 Insulin Aspart (*Bkc) 100 Units/Ml SUB-Q Not Given Q4HR [facility] Protocol Insulin Glargine 20 units 05/24/25 14:20 05/24/25 22:29 Insulin Glargine (*Bkc) 100 Units/Ml SUB-Q 20 units HS WAED Administration Levothyroxine Sodium 125 mcg 05/25/25 06:30 05/25/25 06:38 Levothyroxine Sodium 125 Mcg Tablet PO 125 mcg DAILY@0630 WADE Administration Nicotine 1 patch 05/24/25 20:45 05/25/25 08:21 Nicotine (*Pbkc) 21 Mg Patch TRANSDERM Not Given DAILY WADE Pantoprazole Sodium 40 mg 05/24/25 09:00 05/25/25 08:21 Pantoprazole Sodium Iv 40 Mg Vial IV PUSH 40 mg QAM WADE Administration Radiology Results: ITS Impressions Chest X-Ray 05/24/25 06:14 IMPRESSION: 1. No acute cardiopulmonary findings given portable technique. Labs Labs: Laboratory Results - last 24 hr 05/24/25 05/24/25 05/24/25 05:03 05:09 09:05 WBC RBC Hgb Hct MCV MCH MCHC RDW Plt Count MPV O2 Delivery Device Room air O2 Liters/Min Not Reportable Sodium 131 L Potassium 4.3 Chloride 100 Carbon Dioxide 10 L Anion Gap 21 H BUN 27 H Creatinine 0.92 Estim Creat Clear Calc 31 Estimated GFR 59 Glucose 262 H POC Capillary Glucose Hemoglobin A1c 8.6 H Calcium 9.1 Magnesium Total Bilirubin AST ALT Alkaline Phosphatase Total Protein Albumin Procalcitonin 1.4 TSH (Reflex) 0.256 L Free T4 2.65 H 05/24/25 05/24/25 05/24/25 09:15 10:07 11:23 WBC RBC Hgb Hct MCV MCH MCHC RDW Plt Count MPV O2 Delivery Device O2 Liters/Min Sodium Potassium Chloride Carbon Dioxide Anion Gap BUN Creatinine Estim Creat Clear Calc Estimated GFR Glucose POC Capillary Glucose 276 H 210 H 174 H Hemoglobin A1c Calcium Magnesium Total Bilirubin AST ALT Alkaline Phosphatase Total Protein Albumin Procalcitonin TSH (Reflex) Free T4 05/24/25 05/24/25 05/24/25 12:10 12:53 13:14 WBC RBC Hgb Hct MCV MCH MCHC RDW Plt Count MPV O2 Delivery Device O2 Liters/Min Sodium 132 L Potassium 4.3 Chloride 103 Carbon Dioxide 17 L Anion Gap 12 BUN 26 H Creatinine 0.75 Estim Creat Clear Calc 38 Estimated GFR > 60 Glucose 167 H POC Capillary Glucose 173 H 161 H Hemoglobin A1c Calcium 9.0 Magnesium Total Bilirubin AST ALT Alkaline Phosphatase Total Protein Albumin Procalcitonin TSH (Reflex) Free T4 05/24/25 05/24/25 05/25/25 15:42 22:18 02:10 WBC RBC Hgb Hct MCV MCH MCHC RDW Plt Count MPV O2 Delivery Device O2 Liters/Min Sodium Potassium Chloride Carbon Dioxide Anion Gap BUN Creatinine Estim Creat Clear Calc Estimated GFR Glucose POC Capillary Glucose 162 H 237 H 63 L Hemoglobin A1c Calcium Magnesium Total Bilirubin AST ALT Alkaline Phosphatase Total Protein Albumin Procalcitonin TSH (Reflex) Free T4 05/25/25 05/25/25 05/25/25 02:59 04:45 05:03 WBC 16.7 H RBC 3.44 L Hgb 10.4 L Hct 32.0 L MCV 93.0 MCH 30.2 MCHC 32.5 RDW 13.0 Plt Count 413 H MPV 9.3 O2 Delivery Device O2 Liters/Min Sodium Potassium Chloride Carbon Dioxide Anion Gap BUN Creatinine Estim Creat Clear Calc Estimated GFR Glucose POC Capillary Glucose 83 97 Hemoglobin A1c Calcium Magnesium Total Bilirubin AST ALT Alkaline Phosphatase Total Protein Albumin Procalcitonin TSH (Reflex) Free T4 05/25/25 05/25/25 05/25/25 06:05 06:26 06:30 WBC RBC Hgb Hct MCV MCH MCHC RDW Plt Count MPV O2 Delivery Device O2 Liters/Min Sodium 131 L Potassium 3.6 Chloride 102 Carbon Dioxide 26 Anion Gap 3 L BUN 19 H Creatinine 0.54 L Estim Creat Clear Calc 51 Estimated GFR > 60 Glucose 63 L POC Capillary Glucose 41 L* 94 Hemoglobin A1c Calcium 8.7 Magnesium 2.0 Total Bilirubin 0.2 AST 31 ALT 17 Alkaline Phosphatase 100 Total Protein 5.3 L Albumin 3.1 L Procalcitonin TSH (Reflex) Free T4 Quality VTE Prophylaxis VTE prophylaxis: pharmacologic ordered Hospitalist MIPS Advance Care Plan I have confirmed that the patient's Advanced Care Plan is present, code status is documented, or surrogate decision maker is listed in patient medical record.: Yes Medication Reconciliation I have utilized all available resources to obtain, update and review the patients current medications (includes all prescriptions, OTC, herbals, cannabis, and nutritional supplements).: Yes
--- NOTE | 2025-05-25 10:09 | PCCDE ---
05/24:? 22:18 ? POC: ?237 (+ 3u) 05/25: POC:? [id number] Meds: Lantus 20 U HS Novolog 3-6 U Q 4hrs. Pt with mild and significant hypoglycemia events, will benefit from reduction in insulin dosing.? Spoke with Dr. MCINTYRE regarding ideas. RECOMMEND: DC Lantus 20 U and Novolog Moderate correction q4. As discussed Add: Basal dose in-between wt based and 20% reduction of home basal = Lantus 15 U Correction: Low dose TIDwm. Continue to monitor POC for potential insulin titration needs.
--- NOTE | 2025-05-25 10:59 | PCDIET ---
Pt started on a diabetic diet, reports a fair appetite but issues chewing due to no dentures. Agreeable to soft and bite sized level 6 diet, also adding Glucerna shakes BID.
[2025-05-25] MEDS: LACTATED RINGERS 1,000 ML 75 ML IV CONT (12:43)
[2025-05-25] MEDS: INSULIN GLARGINE (*BKC) 100 UNITS/ML 15 UNITS SUB-Q (20:37)
[2025-05-25] MEDS: INSULIN ASPART (*BKC) 100 UNITS/ML SUB-Q (20:37)
[2025-05-26] VITALS (9 sets, daily range): BP systolic 142–172; BP diastolic 71–91; PULSE 58–95; RESP 16–18; TEMP 36.6–37.4; O2SAT 95–100
[2025-05-26] MEDS: LACTATED RINGERS 1,000 ML 75 ML IV CONT (04:17)
[2025-05-26] MEDS: LEVOTHYROXINE SODIUM 125 MCG TABLET PO (05:30)
[2025-05-26 07:03] LABS: Hematocrit 35.9 % (37.0-47.0); Hemoglobin 11.9 g/dL (12.0-15.0); Mean Corpuscular HGB Conc 33.1 g/dl (32-36); Mean Corpuscular Hemoglobin 30.9 pg (26-34); Mean Corpuscular Volume 93.2 fl (80-100); Platelet Count Result 391 k/mm3 (150-375); Red Blood Count 3.85 M/mm3 (4.2-5.4); White Blood Count 9.5 K/mm3 (4.5-10.0)
[2025-05-26 07:28] LABS: Alanine Aminotransferase 21 U/L (6-35); Albumin Level 3.2 g/dL (3.5-5.1); Alkaline Phosphatase 114 U/L (38-126); Anion Gap 2 mmol/L (4-12); Aspartate Amino Transferase 38 U/L (14-36); Bilirubin,Total 0.3 mg/dL (0.2-1.3); Blood Urea Nitrogen 10 mg/dL (7-17); Calcium 8.7 mg/dL (8.4-10.2); Carbon Dioxide 31 mmol/L (22-30); Chloride 100 mmol/L (98-107); Estimated CRCL calculation 58 ml/min; Estimated Glomerular Filt Rate > 60; Glucose 69 mg/dL (65-110); Magnesium 2.1 mg/dL (1.6-2.3); Potassium 4.4 mmol/L (3.4-5.0); Sodium 133 mmol/L (137-145); Total Protein 5.6 g/dL (6.3-8.2)
[2025-05-26] MEDS: NICOTINE (*PBKC) 21 MG PATCH 1 PATCH TRANSDERM (08:14)
[2025-05-26] MEDS: ENOXAPARIN 40 MG/0.4 ML SYRINGE SUB-Q (08:15)
[2025-05-26] MEDS: PANTOPRAZOLE SODIUM IV 40 MG VIAL IV PUSH (08:15)
--- NOTE | 2025-05-26 09:18 | PM.DS ---
DS: Admitting Diagnosis Discharge Date 05/26/2025 Admitting Diagnosis High blood sugar DS: Discharge Diagnosis Discharge Diagnosis (1) DKA (diabetic ketoacidosis): Code(s): E11.10 - Type 2 diabetes mellitus with ketoacidosis without coma Status: Acute Plan Please refer to hospital course for brief summary DKA/DM 2 Patient presented with hyperglycemia with elevated anion gap and elevated hydroxybutyrate DKA resolved Patient currently on Lantus 15 units and low-dose SSI Leukocytosis WBC 26.6< 16.7 likely from dehydration Contineu IVF and monitor Possibly reactive Hypothyroidism Thyroid studies showed hyperthyroidism Decreased Levothyroxine from 137 to 125mcg monitor HTN titrate home meds with clinical course HLD continue home meds DVT prophylaxis on Sq Lovenox Full code DS: Summary Hospital Course Hospital Course: Pita Palmer is a 80 year old female with past medical history of diabetes mellitus who is a resident at assisted living facility was sent by staff as she was confused. They checked her blood sugar was 600 and above. During my evaluation she states that she is here because of high blood sugars. She also states she has have nausea but no vomiting. She is unable to tell me when the nausea started. She denies any chest pain abdominal pain diarrhea constipation fever shortness of breath cough dizziness lightheadedness or loss of consciousness. She states she administers her insulin herself but is provided by the staff. She claims compliance with all medications. She denies dysuria hematuria hematochezia melena. All other systems were reviewed and were negative Workup in the ER showed WBC 26.6 platelet 512 VBG 7.34/19/49/10 Sodium 126 potassium 5.7 CO2 6 anion gap 27 BUN 29 creatinine 1 blood glucose 549 and beta hydroxybutyrate 7.59 UA negative for UTI chest x-ray negative for any acute cardiopulmonary process Patient was given 1 L IV fluid bolus. Also 1 dose of Rocephin azithromycin in the ER and was started on insulin infusion admitted to ICU for further evaluation management patient's mental status has improved and she is alert oriented at this time. I assumed care 0 05/25 to 0 05/26: On 05/25 Patient had episodes of hypoglycemia. Lantus decreased from 20 units to 15 units under sliding scale has been downgraded from moderate to mild SSI. On 05/26 patient had no episodes of hypoglycemia. Leukocytosis resolved On the day of discharge, the patient was seen and examined. Vital signs were stable. Physical exam were stable and labs were reviewed at length. Discharge instructions, medications, and follow-up appointments were discussed with the patient at length and all day questions were answered. ER warnings were given. Status at Discharge Cognitive/behavioral status at discharge: Stable Time Spent with Patient Time attestation: Total time spent providing and/or coordinating discharge services: 45 minutes Exam Narrative: General: alert and comfortable Eyes: EOMI, PERRLA ENNT External ears normal, Neck is supple, no masses, Respiratory systems: Clear to auscultation Cardiovascular S1, S2, normal rhythm, no murmur, rub, or gallop; no thrill or palpable murmurs on palpation. Gastrointestinal: soft, non-tender, and non-distended abdomen with no masses; BS present Skin: no rash, lesions, ulcerations, subcutaneous nodules or induration Musculoskeletal: no abnormality and no tenderness, normal ROM Neurologic: Alert and oriented x3, non focal Mental Status Exam: normal affect DS: Data Data Completed and Pending Labs on day of discharge: Labs from last 24 hours 05/26/25 05/26/25 05/26/25 08:50 08:08 06:53 WBC 9.5 RBC 3.85 L Hgb 11.9 L Hct 35.9 L MCV 93.2 MCH 30.9 MCHC 33.1 RDW 12.5 Plt Count 391 H MPV 9.1 Sodium 133 L Potassium 4.4 Chloride 100 Carbon Dioxide 31 H Anion Gap 2 L BUN 10 D Creatinine 0.47 L Estim Creat Clear Calc 58 Estimated GFR > 60 Glucose 69 POC Capillary Glucose 181 H 55 L* Calcium 8.7 Magnesium 2.1 Total Bilirubin 0.3 AST 38 H ALT 21 Alkaline Phosphatase 114 Total Protein 5.6 L Albumin 3.2 L 05/26/25 05/25/25 05/25/25 01:02 20:22 16:30 WBC RBC Hgb Hct MCV MCH MCHC RDW Plt Count MPV Sodium Potassium Chloride Carbon Dioxide Anion Gap BUN Creatinine Estim Creat Clear Calc Estimated GFR Glucose POC Capillary Glucose 182 H 275 H 195 H Calcium Magnesium Total Bilirubin AST ALT Alkaline Phosphatase Total Protein Albumin 05/25/25 11:30 WBC RBC Hgb Hct MCV MCH MCHC RDW Plt Count MPV Sodium Potassium Chloride Carbon Dioxide Anion Gap BUN Creatinine Estim Creat Clear Calc Estimated GFR Glucose POC Capillary Glucose 120 H Calcium Magnesium Total Bilirubin AST ALT Alkaline Phosphatase Total Protein Albumin Preliminary micro results at discharge 05/24/25 06:39 Blood Culture - Preliminary Blood 05/24/25 06:39 Blood Culture - Preliminary Blood Discharge Plan Discharge Attending physician on discharge: Houston Stein Consulting providers: Miguel Ángel Flores Discharging Clinician: Houston Stein Anticipated Discharge Date/Time: 05/26/25 09:23 Patient Disposition: NH Alf/Asst Living Activity: as tolerated Diet: diabetic Patient Instructions: Antibiotic Form Patient Language: Malay Stand Alone Forms: General Discharge Information Follow-up/Referrals: Ji Juan DO [Primary Care Provider, [facility]] Discharge Medications: New levothyroxine [Synthroid] 125 mcg Tablet 125 mcg PO DAILY@30 Qty: 30 0RF insulin glargine [Lantus Solostar U-100 Insulin] 100 unit/mL (3 mL) insulin pen 15 unit subcut HS Qty: 15 0RF insulin aspart U-100 100 unit/mL (3 mL) insulin pen 1 sliding scale dose subcut USEASDIRECTD Qty: 15 0RF Rx Instructions: Low-dose sliding scale Glucose 70-200:no additional insulin Glucose 201-250: 2 units subQ Glucose 251-300: 3 units subQ Glucose 301-350: 4 units subQ Glucose 351-400: 5 units subQ Glucose greater than 400 call MD Continued (DME) blood-glucose meter [OneTouch Ultra2 Meter] Kit See Rx Instructions .Route Qty: 1 0RF Rx Instructions: Daily (DME) blood glucose control, normal [OneTouch Ultra Control] Solution See Rx Instructions .Route Qty: 1 5RF Rx Instructions: As directed (DME) lancets [OneTouch Delica Plus Lancet] 33 gauge misc See Rx Instructions .Route Qty: 100 5RF Rx Instructions: TID loratadine [Allergy Relief (loratadine)] 10 mg tablet 10 mg PO DAILY acetaminophen 500 mg tablet See Rx Instructions .ROUTE .COMPLEX Qty: 60 3RF Dose Instruction: TAKE 2 TABLETS EVERY 4-6 HOURS NEEDED FOR PAIN Rx Instructions: TAKE 2 TABLETS EVERY 4-6 HOURS NEEDED FOR PAIN (DME) blood-glucose meter [Blood Glucose Monitoring] Kit See Rx Instructions .Route Qty: 1 0RF Rx Instructions: As directed (DME) OneTouch Ultra Test Strip See Rx Instructions .Route Qty: 100 5RF Rx Instructions: four times daily glucose 4 gram tablet,chewable 4 g PO Q15M PRN (Reason: hypoglycemia) Qty: 90 4RF Rx Instructions: until symptoms of low blood sugar are controlled (DME) pen needle, diabetic [BD Ultra-Fine Mini Pen Needle] 31 gauge x 3/16 needle See Rx Instructions .ROUTE .COMPLEX Qty: 100 3RF Dose Instruction: USE FOUR TIMES DAILY FOR INSULIN INJECTIONS. Rx Instructions: USE FOUR TIMES DAILY FOR INSULIN INJECTIONS. glucosamine HCl 500 mg tablet 500 mg PO DAILY Qty: 30 3RF Rx Instructions: administer with a meal; dose unknown simvastatin 40 mg tablet See Rx Instructions .ROUTE .COMPLEX Qty: 90 3RF Dose Instruction: TAKE 1 TABLET BY MOUTH AT BEDTIME. -HS- Rx Instructions: TAKE 1 TABLET BY MOUTH AT BEDTIME. -HS- lisinopril 10 mg tablet See Rx Instructions .ROUTE .COMPLEX Qty: 90 3RF Dose Instruction: TAKE 1 TABLET BY MOUTH DAILY. --NOON-- Rx Instructions: TAKE 1 TABLET BY MOUTH DAILY. --NOON-- fluticasone propionate 50 mcg/actuation spray,suspension See Rx Instructions .ROUTE .COMPLEX Qty: 16 5RF Dose Instruction: USE 1 SPRAY IN EACH NOSTRIL ONCE A DAY. SHAKE GENTLY. Rx Instructions: USE 1 SPRAY IN EACH NOSTRIL ONCE A DAY. SHAKE GENTLY. albuterol sulfate 90 mcg/actuation HFA aerosol inhaler See Rx Instructions .ROUTE .COMPLEX Qty: 18 2RF Dose Instruction: USE 2 PUFFS 4 TIMES A DAY NEEDED. SHAKE WELL Rx Instructions: USE 2 PUFFS 4 TIMES A DAY NEEDED. SHAKE WELL (DME) FreeStyle Test Strip See Rx Instructions .Route Qty: 100 5RF Rx Instructions: TID omeprazole 40 mg capsule,delayed release(DR/EC) See Rx Instructions .ROUTE .COMPLEX Qty: 30 2RF Dose Instruction: 40 MG ORALLY DAILY Rx Instructions: 40 MG ORALLY DAILY Linzess 145 mcg capsule See Rx Instructions .ROUTE .COMPLEX Qty: 30 2RF Dose Instruction: TAKE 1 CAPSULE BY MOUTH ONCE DAILY AT AT NOON Rx Instructions: TAKE 1 CAPSULE BY MOUTH ONCE DAILY AT AT NOON Farxiga 10 mg tablet See Rx Instructions .ROUTE .COMPLEX Qty: 30 2RF Dose Instruction: TAKE 1 TABLET BY MOUTH DAILY (AM) Rx Instructions: TAKE 1 TABLET BY MOUTH DAILY (AM) metformin 500 mg tablet See Rx Instructions .ROUTE .COMPLEX Qty: 180 0RF Dose Instruction: 500 MG ORALLY TWICE A DAY Rx Instructions: 500 MG ORALLY TWICE A DAY oxybutynin chloride 15 mg tablet extended release 24hr See Rx Instructions .ROUTE .COMPLEX Qty: 30 2RF Dose Instruction: TAKE ONE TABLET BY MOUTH ONCE DAILY. -NOON- Rx Instructions: TAKE ONE TABLET BY MOUTH ONCE DAILY. -NOON- alendronate 70 mg tablet See Rx Instructions .ROUTE .COMPLEX Qty: 4 2RF Dose Instruction: TAKE 1 TABLET BY MOUTH AT THE SAME TIME EACH WEEK ON MONDAYS. Rx Instructions: TAKE 1 TABLET BY MOUTH AT THE SAME TIME EACH WEEK ON MONDAYS. Discontinued levothyroxine [Synthroid] 137 mcg tablet 137 mcg PO DAILY Qty: 90 2RF insulin glargine-yfgn 100 unit/mL (3 mL) insulin pen See Rx Instructions .ROUTE .COMPLEX Qty: 15 5RF Dose Instruction: 22 UNIT (0.22 ML) SUBCUTANEOUSLY EVERY MORNING Rx Instructions: 22 UNIT (0.22 ML) SUBCUTANEOUSLY EVERY MORNING Date of admission: 05/24/25 06:01 Primary Care Provider: Ji Juan Admitting Provider: Anju Morel Attending physician on admission: Anju Morel Condition: Serious
--- NOTE | 2025-05-26 09:41 | PCCDE ---
diabetes education f/up: Called Dr MCINTYRE to notify about labs: 01/14/23 Cpeptide=<0.010 (Low) and low fasting glucose this am of 55mg/dl POC glucose 05/25= [phone] Lantus was reduced to 15 units on 05/25 but pt still had hypoglycemia this am of 55mg/dl. Based on labs and POC glucose pattern, recommend to use weight based dosing and provide basal and bolus insulin of ~8-10 units Lantus @ HS, 2-3 units Novolog WM. He agreed to start with 8 units Lantus and 2 units Novolog and monitor. Correction scale should be low dose based on pt weight.
[2025-05-26] MEDS: INSULIN ASPART (*BKC) 100 UNITS/ML SUB-Q ×4 (12:19→20:17)
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
--- NOTE | 2025-05-26 14:50 | PCSTNOTE ---
Please refer to the Bedside Swallow Evaluation in the EMR. Please note, silent aspiration cannot be ruled out at bedside. The patient is a 80 year old female admitted for hyperglycemia and AMS. Orders received to complete a BSE and r/o aspiration risk due to observed coughing by nursing with the patient's morning meal. The patient reports only having her upper dentures and that her lower dentures are at the [facility]. She states it is difficult to manage the solids she received with her meals without her lower dentures. The patient was positioned upright at 90 degrees and assessed with the following consistencies: 5cc/tsp thin liquid, thin liquid via a straw, and pudding/puree consistency. The patient declined trials of solid/cracker due to limited dentition for adequate mastication. Oral Stage: The patient demonstrated timely oral preparation and transit of all consistencies. Pharyngeal Stage: When presented 5cc/tsp thin liquid swallow initiation was viewed to be timely without CSA. When presented tsp amounts pudding/puree the patient initially completed two swallows without noted CSA. However, following the third trial of pudding the patient was noted to have a delayed cough and slightly raspy vocal quality following the swallow. Finally, when presented straw drinks of thin liquid the patient initially took multiple sequential swallows without noted CSA. However, after the third and fourth trial the patient was noted to have a delayed cough after the swallow was complete. Recommend 1. MBS 2. Small bites and drinks till MBS 3. Upright 4. Slow rate of intake 5. Frequent Observation 6. Thin Liquid / Level 0 7. Patient is selecting softer meal options but may consider Soft and bite size / Level 6. 8. No Straw
[2025-05-26] MEDS: INSULIN GLARGINE (*BKC) 100 UNITS/ML 15 UNITS SUB-Q (20:18)
[2025-05-27] VITALS (9 sets, daily range): BP systolic 148–159; BP diastolic 65–76; PULSE 62–74; RESP 16–20; TEMP 37.1–37.3; O2SAT 97–99
[2025-05-27] MEDS: LEVOTHYROXINE SODIUM 125 MCG TABLET PO (05:02)
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
[2025-05-27 08:21] LABS: Hematocrit 39.0 % (37.0-47.0); Hemoglobin 12.7 g/dL (12.0-15.0); Mean Corpuscular HGB Conc 32.6 g/dl (32-36); Mean Corpuscular Hemoglobin 30.4 pg (26-34); Mean Corpuscular Volume 93.3 fl (80-100); Platelet Count Result 405 k/mm3 (150-375); Red Blood Count 4.18 M/mm3 (4.2-5.4); White Blood Count 9.7 K/mm3 (4.5-10.0)
[2025-05-27 08:48] LABS: Alanine Aminotransferase 24 U/L (6-35); Albumin Level 3.6 g/dL (3.5-5.1); Alkaline Phosphatase 141 U/L (38-126); Anion Gap 3 mmol/L (4-12); Aspartate Amino Transferase 43 U/L (14-36); Bilirubin,Total 0.4 mg/dL (0.2-1.3); Blood Urea Nitrogen 8 mg/dL (7-17); Calcium 9.1 mg/dL (8.4-10.2); Carbon Dioxide 31 mmol/L (22-30); Chloride 99 mmol/L (98-107); Estimated CRCL calculation 62 ml/min; Estimated Glomerular Filt Rate > 60; Glucose 150 mg/dL (65-110); Magnesium 2.3 mg/dL (1.6-2.3); Potassium 4.2 mmol/L (3.4-5.0); Sodium 133 mmol/L (137-145); Total Protein 6.1 g/dL (6.3-8.2)
[2025-05-27] MEDS: ENOXAPARIN 40 MG/0.4 ML SYRINGE SUB-Q (09:59)
[2025-05-27] MEDS: PANTOPRAZOLE SODIUM IV 40 MG VIAL IV PUSH (09:59)
[2025-05-27] MEDS: NICOTINE (*PBKC) 21 MG PATCH 1 PATCH TRANSDERM (10:00)
[2025-05-27] MEDS: INSULIN ASPART (*BKC) 100 UNITS/ML SUB-Q ×5 (10:00→21:20)
--- NOTE | 2025-05-27 11:59 | PCSTNOTE ---
Please refer to the Modified Barium Swallow Evaluation in the EMR.
[2025-05-27] MEDS: HYDROcodone/acetaminophen (*CRX) 5-325 MG TABLET 1 TAB PO ×2 (16:26→21:26)
[2025-05-27] MEDS: INSULIN GLARGINE (*BKC) 100 UNITS/ML 8 UNITS SUB-Q (21:18)
[2025-05-28] VITALS: PULSE 63
[2025-05-28 04:00] VITALS: PULSE 61
[2025-05-28] MEDS: LEVOTHYROXINE SODIUM 125 MCG TABLET PO (05:39)
[2025-05-28 06:00] VITALS: BP 139/75; PULSE 67; RESP 16; TEMP 36.7; O2SAT 94
[2025-05-28 06:15] LABS: Hematocrit 37.4 % (37.0-47.0); Hemoglobin 12.3 g/dL (12.0-15.0); Mean Corpuscular HGB Conc 32.9 g/dl (32-36); Mean Corpuscular Hemoglobin 30.7 pg (26-34); Mean Corpuscular Volume 93.3 fl (80-100); Platelet Count Result 379 k/mm3 (150-375); Red Blood Count 4.01 M/mm3 (4.2-5.4); White Blood Count 9.5 K/mm3 (4.5-10.0)
[2025-05-28 06:39] LABS: Alanine Aminotransferase 23 U/L (6-35); Albumin Level 3.5 g/dL (3.5-5.1); Alkaline Phosphatase 134 U/L (38-126); Anion Gap 1 mmol/L (4-12); Aspartate Amino Transferase 28 U/L (14-36); Bilirubin,Total 0.2 mg/dL (0.2-1.3); Blood Urea Nitrogen 8 mg/dL (7-17); Calcium 8.9 mg/dL (8.4-10.2); Carbon Dioxide 32 mmol/L (22-30); Chloride 100 mmol/L (98-107); Estimated CRCL calculation 62 ml/min; Estimated Glomerular Filt Rate > 60; Glucose 108 mg/dL (65-110); Magnesium 2.3 mg/dL (1.6-2.3); Potassium 4.3 mmol/L (3.4-5.0); Sodium 133 mmol/L (137-145); Total Protein 6.0 g/dL (6.3-8.2)
[2025-05-28 08:00] VITALS: PULSE 95
[2025-05-28] MEDS: INSULIN ASPART (*BKC) 100 UNITS/ML SUB-Q (09:00)
[2025-05-28] MEDS: PANTOPRAZOLE SODIUM IV 40 MG VIAL IV PUSH (09:02)
[2025-05-28] MEDS: NICOTINE (*PBKC) 21 MG PATCH 1 PATCH TRANSDERM (09:02)
[2025-05-28] MEDS: ENOXAPARIN 40 MG/0.4 ML SYRINGE SUB-Q (09:02)
--- NOTE | 2025-05-28 09:54 | P.PNIM_ITS ---
Progress Note: A&P Assessment and Plan (1) DKA (diabetic ketoacidosis): Code(s): E11.10 - Type 2 diabetes mellitus with ketoacidosis without coma Status: Acute Plan DKA/DM 2 Patient presented with hyperglycemia with elevated anion gap and elevated hydroxybutyrate Patient treated with IV insulin and now DKA resolved Patient currently on Lantus 15 units and low-dose SSI which has been titrated because of recurrent hypoglycemia 05/25:Patient had episodes of hypoglycemia so her Lantus was decreased from 20 units to 15 units and sliding scale was de-escalated from moderate to low dose s liding scale. 05/26: Patient still has episodes of hypoglycemia in the morning so her Lantus is decreased from 15 units to 8 units and added to units NovoLog with meals due to episodes of hyperglycemia after meals. Will continue low-dose sliding scale 05/27: Patient Lantus has been decreased from 15 to 8 units 05/27. Will continue NovoLog 2 units t.i.d. and low-dose sliding scale. Underwent modified barium swallow which shows signs of aspiration. Leukocytosis Resolved WBC 26.6< 16.7 likely from dehydration Contineu IVF and monitor Possibly reactive Hypothyroidism Thyroid studies showed hyperthyroidism Decreased Levothyroxine from 137 to 125mcg monitor HTN titrate home meds with clinical course HLD continue home meds DVT prophylaxis on Sq Lovenox Full code Subjective Date/time seen: 05/28/25 09:54 Interval history: No overnight events. No new complaints. Blood sugar trend reviewed. Review of Systems Review of Systems: All systems reviewed & are unremarkable except as noted in HPI and below (HPI) Exam Narrative: General: alert and comfortable Eyes: EOMI, PERRLA External ears normal, Neck is supple, no masses, Respiratory systems: Clear to auscultation no respiratory distress Cardiovascular S1, S2, normal rhythm, no murmur, rub, or gallop; no thrill or palpable murmurs on palpation. Gastrointestinal: soft, non-tender, and non-distended abdomen with no masses; BS present Skin: no rash, lesions, ulcerations, subcutaneous nodules or induration Musculoskeletal: no abnormality and no tenderness, normal ROM Neurologic: Alert and oriented x3, non focal Mental Status Exam: normal affect Objective Data Vital Signs Vital Signs: Vital Signs - 24 hr 05/27/25 12:05 05/27/25 14:00 05/27/25 16:01 Temperature 99.0 F Pulse Rate 66 74 70 Respiratory Rate 16 Blood Pressure 154/73 H Pulse Oximetry 99 Oxygen Delivery 05/27/25 20:00 05/27/25 21:20 05/27/25 22:00 Temperature 98.7 F Pulse Rate 73 71 Respiratory Rate 20 Blood Pressure 148/76 H Pulse Oximetry 97 Oxygen Delivery Room Air 05/28/25 00:00 05/28/25 04:00 05/28/25 06:00 Temperature 98.0 F Pulse Rate 63 61 67 Respiratory Rate 16 Blood Pressure 139/75 Pulse Oximetry 94 Oxygen Delivery 05/28/25 08:00 Temperature Pulse Rate 95 Respiratory Rate Blood Pressure Pulse Oximetry Oxygen Delivery Intake/Output Intake/Output: Intake & Output 05/25/25 05/26/25 05/27/25 05/28/25 23:59 23:59 23:59 23:59 Intake Total 2200 1836 1750 0 Output Total 450 Balance 1750 1836 1750 0 Meds/Results Medications: Active Medications Generic Name Dose Route Start Last Admin Trade Name Freq PRN Reason Stop Dose Admin Hydrocodone Bitart/Acetaminophen 1 tab 05/27/25 15:49 05/27/25 21:26 Hydrocodone/Acetaminophen (*Crx) 5-325 Mg Tablet PO 1 tab Q4H PRN Administration Pain Rated 4-6 Dextrose 12.5 gm 05/24/25 05:43 Dextrose 50% 25 Gm/50 Ml Syringe IV PUSH PRN PRN Hypoglycemia Protocol Enoxaparin Sodium 40 mg 05/24/25 09:00 05/28/25 09:02 Enoxaparin 40 Mg/0.4 Ml Syringe SUB-Q 40 mg DAILY WADE Administration Glucagon 1 mg 05/24/25 05:43 Glucagon For Inj 1 Mg Vial IM PRN PRN Hypoglycemia Protocol Glucose 8 gm 05/26/25 09:34 Glucose Oral Gel 15 Gm Of Glucse In 37.5 Gm Tube PO PRN PRN Hypoglycemia Protocol Dextrose 1,000 mls @ 100 mls/hr 05/24/25 05:43 Dextrose 5% 1,000 Ml IVPB PRN PRN Hypoglycemia Protocol Insulin Aspart 2 - 5 units 05/25/25 17:00 05/28/25 09:00 Insulin Aspart (*Bkc) 100 Units/Ml SUB-Q Not Given TIDWM WADE Protocol Insulin Aspart 1 - 2 units 05/25/25 21:00 05/27/25 21:20 Insulin Aspart (*Bkc) 100 Units/Ml SUB-Q 2 units HS WADE Administration Protocol Insulin Aspart 3 units 05/27/25 17:00 05/28/25 09:00 Insulin Aspart (*Bkc) 100 Units/Ml SUB-Q 3 units TIDWM WADE Administration Insulin Glargine 8 units 05/27/25 21:00 05/27/25 21:18 Insulin Glargine (*Bkc) 100 Units/Ml SUB-Q 8 units HS WADE Administration Levothyroxine Sodium 125 mcg 05/25/25 06:30 05/28/25 05:39 Levothyroxine Sodium 125 Mcg Tablet PO 125 mcg DAILY@0630 WADE Administration Nicotine 1 patch 05/24/25 20:45 05/28/25 09:02 Nicotine (*Pbkc) 21 Mg Patch TRANSDERM 1 patch DAILY WADE Administration Pantoprazole Sodium 40 mg 05/24/25 09:00 05/28/25 09:02 Pantoprazole Sodium Iv 40 Mg Vial IV PUSH 40 mg QAM WADE Administration Radiology Results: ITS Impressions Chest X-Ray 05/24/25 06:14 IMPRESSION: 1. No acute cardiopulmonary findings given portable technique. Modified Barium Swallow 05/27/25 11:48 IMPRESSION: Oropharyngeal dysphagia with laryngeal penetration and aspiration. Please correlate with speech pathologist findings and specific feeding recommendations. Labs Labs: Laboratory Results - last 24 hr 05/27/25 05/27/25 05/27/25 11:51 17:05 21:13 WBC RBC Hgb Hct MCV MCH MCHC RDW Plt Count MPV Sodium Potassium Chloride Carbon Dioxide Anion Gap BUN Creatinine Estim Creat Clear Calc Estimated GFR Glucose POC Capillary Glucose 356 H 185 H 302 H Calcium Magnesium Total Bilirubin AST ALT Alkaline Phosphatase Total Protein Albumin 05/28/25 06:00 WBC 9.5 RBC 4.01 L Hgb 12.3 Hct 37.4 MCV 93.3 MCH 30.7 MCHC 32.9 RDW 12.6 Plt Count 379 H MPV 9.3 Sodium 133 L Potassium 4.3 Chloride 100 Carbon Dioxide 32 H Anion Gap 1 L BUN 8 Creatinine 0.43 L Estim Creat Clear Calc 62 Estimated GFR > 60 Glucose 108 POC Capillary Glucose Calcium 8.9 Magnesium 2.3 Total Bilirubin 0.2 AST 28 ALT 23 Alkaline Phosphatase 134 H Total Protein 6.0 L Albumin 3.5
--- NOTE | 2025-05-28 09:59 | P.DS_ITS ---
DS: Admitting Diagnosis Discharge Date 05/28/2025 Admitting Diagnosis Elevated blood sugar DS: Discharge Diagnosis Discharge Diagnosis (1) DKA (diabetic ketoacidosis): Code(s): E11.10 - Type 2 diabetes mellitus with ketoacidosis without coma Status: Acute DS: Summary Hospital Course Hospital Course: DKA/DM 2 Patient presented with hyperglycemia with elevated anion gap and elevated hydroxybutyrate Patient treated with IV insulin and now DKA resolved Patient currently on Lantus 15 units and low-dose SSI which has been titrated because of recurrent hypoglycemia 05/25:Patient had episodes of hypoglycemia so her Lantus was decreased from 20 units to 15 units and sliding scale was de-escalated from moderate to low dose sliding scale. 05/26: Patient still has episodes of hypoglycemia in the morning so her Lantus is decreased from 15 units to 8 units and added to units NovoLog with meals due to episodes of hyperglycemia after meals. Will continue low-dose sliding scale 05/27: Patient Lantus has been decreased from 15 to 8 units 05/27. Will continue NovoLog 2 units t.i.d. and low-dose sliding scale. Underwent modified barium swallow which shows signs of aspiration. Leukocytosis Resolved WBC 26.6< 16.7 likely from dehydration Contineu IVF and monitor Possibly reactive Hypothyroidism Thyroid studies showed hyperthyroidism Decreased Levothyroxine from 137 to 125mcg monitor HTN titrate home meds with clinical course HLD continue home meds DVT prophylaxis on Sq Lovenox Full code Time Spent with Patient Time attestation: Total time spent providing and/or coordinating discharge services: 45 minutes Exam Narrative: General: alert and comfortable Eyes: EOMI, PERRLA External ears normal, Neck is supple, no masses, Respiratory systems: Clear to auscultation no respiratory distress Cardiovascular S1, S2, normal rhythm, no murmur, rub, or gallop; no thrill or palpable murmurs on palpation. Gastrointestinal: soft, non-tender, and non-distended abdomen with no masses; BS present Skin: no rash, lesions, ulcerations, subcutaneous nodules or induration Musculoskeletal: no abnormality and no tenderness, normal ROM Neurologic: Alert and oriented x3, non focal Mental Status Exam: normal affect DS: Data Data Completed and Pending Labs on day of discharge: Labs from last 24 hours 05/28/25 05/27/25 05/27/25 06:00 21:13 17:05 WBC 9.5 RBC 4.01 L Hgb 12.3 Hct 37.4 MCV 93.3 MCH 30.7 MCHC 32.9 RDW 12.6 Plt Count 379 H MPV 9.3 Sodium 133 L Potassium 4.3 Chloride 100 Carbon Dioxide 32 H Anion Gap 1 L BUN 8 Creatinine 0.43 L Estim Creat Clear Calc 62 Estimated GFR > 60 Glucose 108 POC Capillary Glucose 302 H 185 H Calcium 8.9 Magnesium 2.3 Total Bilirubin 0.2 AST 28 ALT 23 Alkaline Phosphatase 134 H Total Protein 6.0 L Albumin 3.5 05/27/25 11:51 WBC RBC Hgb Hct MCV MCH MCHC RDW Plt Count MPV Sodium Potassium Chloride Carbon Dioxide Anion Gap BUN Creatinine Estim Creat Clear Calc Estimated GFR Glucose POC Capillary Glucose 356 H Calcium Magnesium Total Bilirubin AST ALT Alkaline Phosphatase Total Protein Albumin Preliminary micro results at discharge 05/24/25 06:39 Blood Culture - Preliminary Blood 05/24/25 06:39 Blood Culture - Preliminary Blood Imaging Radiologist's impression: ITS Impressions Chest X-Ray 05/24/25 06:14 IMPRESSION: 1. No acute cardiopulmonary findings given portable technique. Modified Barium Swallow 05/27/25 11:48 IMPRESSION: Oropharyngeal dysphagia with laryngeal penetration and aspiration. Please correlate with speech pathologist findings and specific feeding recommendations. Discharge Plan Discharge Attending physician on discharge: Juan Daniel Son Consulting providers: Miguel Ángel Flores Discharging Clinician: Juan Daniel Son Anticipated Discharge Date/Time: 05/28/25 10:00 Patient Disposition: NH Long Term/Asst Living Activity: as tolerated Diet: diabetic Discharge Instructions: Accu-Cheks AC and HS lantus 8 units bedtime novolog 3 units with meals along with Sliding scale. Patient Instructions: Antibiotic Form Patient Language: Tristanian Stand Alone Forms: General Discharge Information Follow-up/Referrals: Ji Juan DO [Primary Care Provider, [facility]] Discharge Medications: New levothyroxine [Synthroid] 125 mcg Tablet 125 mcg PO DAILY@0630 Qty: 30 0RF insulin aspart U-100 [Novolog U-100 Insulin aspart] 100 unit/mL Solution 3 unit subcut TIDWM Qty: 30 0RF insulin glargine [Lantus Solostar U-100 Insulin] 100 unit/mL (3 mL) insulin pen 8 unit subcut HS Qty: 15 0RF insulin aspart U-100 100 unit/mL (3 mL) insulin pen 1 sliding scale dose subcut USEASDIRECTD Qty: 15 0RF Protocol: Insulin Corrective Low-Dose Condition: glucose < 70 mg/dl Dose/Route: Follow Hypoglycemia Order Condition: glucose 70-200 mg/dl Dose/Route: No additional insulin Condition: glucose 201-250 mg/dl Dose/Route: 2 units sub-Q Condition: glucose 251-300 mg/dl Dose/Route: 3 units sub-Q Condition: glucose 301-350 mg/dl Dose/Route: 4 units sub-Q Condition: glucose 351-400 mg/dl Dose/Route: 5 units sub-Q Condition: glucose > 400 mg/dl Dose/Route: Call MD Protocol Text: *No Correction Dose at Bedtime* Rx Instructions: Low-dose sliding scale Glucose 70-200:no additional insulin Glucose 201-250: 2 units subQ Glucose 251-300: 3 units subQ Glucose 301-350: 4 units subQ Glucose 351-400: 5 units subQ Glucose greater than 400 call MD Continued (DME) blood-glucose meter [OneTouch Ultra2 Meter] Kit See Rx Instructions .Route Qty: 1 0RF Rx Instructions: Daily (DME) blood glucose control, normal [OneTouch Ultra Control] Solution See Rx Instructions .Route Qty: 1 5RF Rx Instructions: As directed (DME) lancets [OneTouch Delica Plus Lancet] 33 gauge misc See Rx Instructions .Route Qty: 100 5RF Rx Instructions: TID loratadine [Allergy Relief (loratadine)] 10 mg tablet 10 mg PO DAILY acetaminophen 500 mg tablet See Rx Instructions .ROUTE .COMPLEX Qty: 60 3RF Dose Instruction: TAKE 2 TABLETS EVERY 4-6 HOURS NEEDED FOR PAIN Rx Instructions: TAKE 2 TABLETS EVERY 4-6 HOURS NEEDED FOR PAIN (DME) blood-glucose meter [Blood Glucose Monitoring] Kit See Rx Instructions .Route Qty: 1 0RF Rx Instructions: As directed (DME) OneTouch Ultra Test Strip See Rx Instructions .Route Qty: 100 5RF Rx Instructions: four times daily glucose 4 gram tablet,chewable 4 g PO Q15M PRN (Reason: hypoglycemia) Qty: 90 4RF Rx Instructions: until symptoms of low blood sugar are controlled (DME) pen needle, diabetic [BD Ultra-Fine Mini Pen Needle] 31 gauge x 3/16 needle See Rx Instructions .ROUTE .COMPLEX Qty: 100 3RF Dose Instruction: USE FOUR TIMES DAILY FOR INSULIN INJECTIONS. Rx Instructions: USE FOUR TIMES DAILY FOR INSULIN INJECTIONS. glucosamine HCl 500 mg tablet 500 mg PO DAILY Qty: 30 3RF Rx Instructions: administer with a meal; dose unknown simvastatin 40 mg tablet See Rx Instructions .ROUTE .COMPLEX Qty: 90 3RF Dose Instruction: TAKE 1 TABLET BY MOUTH AT BEDTIME. -HS- Rx Instructions: TAKE 1 TABLET BY MOUTH AT BEDTIME. -HS- lisinopril 10 mg tablet See Rx Instructions .ROUTE .COMPLEX Qty: 90 3RF Dose Instruction: TAKE 1 TABLET BY MOUTH DAILY. --NOON-- Rx Instructions: TAKE 1 TABLET BY MOUTH DAILY. --NOON-- fluticasone propionate 50 mcg/actuation spray,suspension See Rx Instructions .ROUTE .COMPLEX Qty: 16 5RF Dose Instruction: USE 1 SPRAY IN EACH NOSTRIL ONCE A DAY. SHAKE GENTLY. Rx Instructions: USE 1 SPRAY IN EACH NOSTRIL ONCE A DAY. SHAKE GENTLY. albuterol sulfate 90 mcg/actuation HFA aerosol inhaler See Rx Instructions .ROUTE .COMPLEX Qty: 18 2RF Dose Instruction: USE 2 PUFFS 4 TIMES A DAY NEEDED. SHAKE WELL Rx Instructions: USE 2 PUFFS 4 TIMES A DAY NEEDED. SHAKE WELL (DME) FreeStyle Test Strip See Rx Instructions .Route Qty: 100 5RF Rx Instructions: TID omeprazole 40 mg capsule,delayed release(DR/EC) See Rx Instructions .ROUTE .COMPLEX Qty: 30 2RF Dose Instruction: 40 MG ORALLY DAILY Rx Instructions: 40 MG ORALLY DAILY Linzess 145 mcg capsule See Rx Instructions .ROUTE .COMPLEX Qty: 30 2RF Dose Instruction: TAKE 1 CAPSULE BY MOUTH ONCE DAILY AT AT NOON Rx Instructions: TAKE 1 CAPSULE BY MOUTH ONCE DAILY AT AT NOON Farxiga 10 mg tablet See Rx Instructions .ROUTE .COMPLEX Qty: 30 2RF Dose Instruction: TAKE 1 TABLET BY MOUTH DAILY (AM) Rx Instructions: TAKE 1 TABLET BY MOUTH DAILY (AM) metformin 500 mg tablet See Rx Instructions .ROUTE .COMPLEX Qty: 180 0RF Dose Instruction: 500 MG ORALLY TWICE A DAY Rx Instructions: 500 MG ORALLY TWICE A DAY oxybutynin chloride 15 mg tablet extended release 24hr See Rx Instructions .ROUTE .COMPLEX Qty: 30 2RF Dose Instruction: TAKE ONE TABLET BY MOUTH ONCE DAILY. -NOON- Rx Instructions: TAKE ONE TABLET BY MOUTH ONCE DAILY. -NOON- alendronate 70 mg tablet See Rx Instructions .ROUTE .COMPLEX Qty: 4 2RF Dose Instruction: TAKE 1 TABLET BY MOUTH AT THE SAME TIME EACH WEEK ON MONDAYS. Rx Instructions: TAKE 1 TABLET BY MOUTH AT THE SAME TIME EACH WEEK ON MONDAYS. Discontinued levothyroxine [Synthroid] 137 mcg tablet 137 mcg PO DAILY Qty: 90 2RF insulin glargine-yfgn 100 unit/mL (3 mL) insulin pen See Rx Instructions .ROUTE .COMPLEX Qty: 15 5RF Dose Instruction: 22 UNIT (0.22 ML) SUBCUTANEOUSLY EVERY MORNING Rx Instructions: 22 UNIT (0.22 ML) SUBCUTANEOUSLY EVERY MORNING Date of admission: 05/24/25 06:01 Primary Care Provider: Ji Juan Admitting Provider: Anju Morel Attending physician on admission: Anju Morel Condition: Improved
--- NOTE | 2025-05-28 11:44 | PC.NURSE ---
pt's POC glucose for this AM 05/28/25 was 102; after multiple attempts to get data transferred from glucometer to electronic chart, the result is not showing in electronic chart. Pt received 3 units Novolog after reviewing the glucometer result with patient's name, V number, and time data collected.
--- NOTE | 2025-05-28 12:00 | PCCDE ---
Pt being discharged today back to assisted living. Met with pt briefly as RN was prepping pt to leave. Pt sts has been on insulin for a long time. Reviewed that dosage changes were made to prevent episodes of hypo and hyperglycemia. Pt sts to carry glucose tabs. Provided ADA booklet: How to Thrive: A Guide for Your Journey with Diabetes with DM Specialist contact info.
--- NOTE | 2025-06-04 15:36 | PCCDE ---
06/04/25: Attempted to place DM Educator courtesy follow up call. Recording stating Mailbox is full.... Unable to leave message.
== END 2025-05-28 12:15 | DRG 639 ==
LOC: ANHED 06:17 → ANHICU 06:27 → ANH3MEDSUR 05-25 03:27
PROVIDERS: Internal Medicine; Admitting Provider General Practice; Emergency Provider Emergency Medicine; PCP Family Medicine; Visit Provider Internal Medicine
DX: E11.10 Type 2 diabetes mellitus with ketoacidosis without coma (principal); D50.9 Iron deficiency anemia, unspecified; I10 Essential (primary) hypertension; E03.9 Hypothyroidism, unspecified; E78.5 Hyperlipidemia, unspecified; K21.9 Gastro-esophageal reflux disease without esophagitis; T17.908A Unspecified foreign body in respiratory tract, part unspecified causing other injury, initial encounter; M81.0 Age-related osteoporosis without current pathological fracture; M19.90 Unspecified osteoarthritis, unspecified site; F17.210 Nicotine dependence, cigarettes, uncomplicated; F79 Unspecified intellectual disabilities
CPT/HCPCS: 36415; 71045; 74230; 80048; 80053; 81003; 82010; 82803; 82948; 83036; 83735; 84100; 84145; 84439; 84443; 85025; 85027; 87040; 87641; 92526; 92610; 92611; 96361; 96374; 97110; 97161; 97166; 97530; 97535; 99285; A9270; J0696; J1650; J1815; J2470; J3480; J7030; J7120

== ENCOUNTER 2025-06-02 11:00 | Outpatient (CLI) | payer OTHER, SELFPAY ==
--- NOTE | ~2025-06-02 | XR_ITS ---
XR lumbar spine 2-3V Indication: M54.50 - Low back pain, unspecified Comparison: None Findings: Dextroconvex scoliosis. Moderate loss of vertebral height throughout. No fracture or subluxation. There is a remote compression fracture of T12 with loss of height 50%. Severe loss of disc height throughout. Soft tissues unremarkable Impression: No acute abnormality. Reviewed, dictated and finalized at location P. Impression: No acute abnormality.
--- OUTSIDE RECORDS SUMMARY | 2025-06-02 11:49 | XMS_ITS | Clinical Summary ---
Author Organization [facility] [address] [place] [address] Professional [place] Address [address] [place] [id number] Care Team Providers Care Market Specialist Name Role Phone Jey Zuñiga MD Unavailable [...] (six) hours as needed for pain. Active [id number] fh-xyb-[id number]-bor 600 mg calcium- 800 unit-50 mg tablet [...] hyperglycemia, with long-term current use of insulin ([facility]) Inject 0.22 mL (22 Units total) under the skin health and nutrition specialist before breakfast 30 mL 1 1 Active levothyroxine (SYNTHROID) 137 mcg tablet TAKE ONE TABLET BY MOUTH ONCE DAILY GENERAL LABORER BEFORE BREAKFAST 30 tablet 2 Active Januvia 100 mg tablet TAKE 1 TABLET BY MOUTH DAILY. -NOON- 30 tablet 2 Active Active Problems Problem Noted Date Diagnosed Date Acquired hypothyroidism 10/12/2020 Assessment & Plan (10/12/2020 1:14 PM LINE CONSTRUCTION SUPERINTENDENT): Continue Levothyroxine Check TSH , free T4 [...] Simvastatin Assessment & Plan (10/12/2020 1:14 PM LINE CONSTRUCTION SUPERINTENDENT): Goal of treatment , LDL cholesterol less [...] profile Assessment & Plan (09/27/2019 7:25 PM LINE CONSTRUCTION SUPERINTENDENT): Check lipid panel Assessment & Plan (04/30/2019 [...] Lisinopril Assessment & Plan (10/12/2020 1:13 PM LINE CONSTRUCTION SUPERINTENDENT): Goal blood pressure is less than 140/85 Low salt diet was discussed andd recommended The importance of daily aerobic exercise was also emphasized. Continue current meds, including MAGDA-I or ARB, e.g. Check microalbumin Assessment & Plan (09/27/2019 7:25 PM LINE CONSTRUCTION SUPERINTENDENT): Controlled on current medications. Continue plan. Assessment & Plan (04/30/2019 4:47 PM CDT): Goal blood pressure is less than 140/85 Low salt diet recommended Daily aerobic exercise Continue current meds, including MAGDA-I or ARB with lisinopril Assessment & Plan (12/18/2018 10:40 AM CDT): Controlled on current medications. Assessment & Plan (10/16/2018 10:27 AM LINE CONSTRUCTION SUPERINTENDENT): Goal blood pressure is less than 140/85 [...] medications. Assessment & Plan (09/19/2017 11:10 AM LINE CONSTRUCTION SUPERINTENDENT): Controlled on current medications. Assessment & Plan [...] medications. Assessment & Plan (09/19/2017 11:09 AM LINE CONSTRUCTION SUPERINTENDENT): Check PCP labs. Will order lipid panel [...] Januvia Assessment & Plan (10/12/2020 1:13 PM LINE CONSTRUCTION SUPERINTENDENT): Lower Tresiba to 20 units in the morning Humalog, before meals : For sugars under 100, none 101-150 2 units 151-200 4 units 201-250 6 units Over 251 8 units Continue Januvia 101-150, and Humalog, no more than 8 units Will request hba1c Assessment & Plan (09/27/2019 7:15 PM LINE CONSTRUCTION SUPERINTENDENT): A1c improved to 7.3. Decrease Tresiba to [...] goal hba1c is under 7.0 to prevent penitentiary diabetes complications ( eye , kidney and [...] it . Monitor your sugar levels with [employer] Pro glucose monitor Bring your sugar meter and [...] reviewed. Assessment & Plan (10/16/2018 10:25 AM LINE CONSTRUCTION SUPERINTENDENT): Hba1c was Lab Results Component Value Date [...] goal hba1c is under 8.0 to prevent penitentiary diabetes complications ( eye , kidney and [...] daily. Assessment & Plan (09/19/2017 11:12 AM LINE CONSTRUCTION SUPERINTENDENT): A1c 8.8. Wide variability in BG appears [...] History Medical History Date Comments Diabetes mellitus Diabetes Osteoporosis Osteoporosis Disorder of thyroid Thyroid dise ase Hyperlipidemia Hyperlipidemia Hypertension Hypertension Hx Other Medical Stress incontin ence Hx Other Medical hip surgery; Co mments: [facility] 04/26/2016 - Family History Medical [...] on file Legal Sex Female 11:14 AM LINE CONSTRUCTION SUPERINTENDENT Gender Identity Not on file Sexual Orientation [...] of Treatment Not on file Insurance MEDICARE [facility] IDPA Care Teams Market Specialist Relationship Specialty Start Date End Date Ji Juan DO [address] [place] [address] PCP - General Family Medicine 11/16/21 Jey Zuñ[place] [id number] [address] [facility] [address] [place] [address] Consulting Physician Endocrinology Diabetes & Metabolism 04/29/19
--- OUTSIDE RECORDS SUMMARY | 2025-06-02 11:49 | XMS_ITS | Clinical Summary ---
Author Organization [facility] Address [address] [place] [id number] Care Team Providers Care Cattle Broker Name Role Phone Unavailable Primary Care Provider Unavailabl e Social History Tobacco Use Types Packs/Day Years Used Date Smoking Tobacco: Never Assessed Comments Unknown Sex and Gender Information Value Date Recorded Sex Assigned at Not on file Legal Sex Female 11:03 PM PARK SERVICES SPECIALIST Gender Identity Not on file Sexual Orientation [...] COVID-19 Vaccine ( - 2023-2 5 season) 2025 Meningococcal B Vaccine Aged Out No l onger eligible based on patient's age to complete this topic Meningococcal Vaccine Aged Out No eric shmuel eligible based on patient's age to complete this topic RSV Immunizations Under 20 Months Aged Out No longer eligible based on patient's age to complete this topic
== END 2025-06-02 11:01 | disposition home or self-care (01) ==
PROVIDERS: PCP Family Medicine; Visit Provider Family Medicine
DX: M54.50 Low back pain, unspecified (principal); G89.29 Other chronic pain
CPT/HCPCS: 72100